=== PATIENT | male | born 1990 | race Caucasian/White ===

== ENCOUNTER 2024-12-04 00:32 | Inpatient (IN) | payer OTHER, SELFPAY ==
[2024-12-04] VITALS (11 sets, daily range): BP systolic 107–136; BP diastolic 58–87; PULSE 105–140; RESP 11–20; TEMP 36.4–37.4; O2SAT 96–99; BMI 41.8
--- NOTE | ~2024-12-04 | US_ITS ---
EXAMINATION: US ABDOMEN LIMITED HISTORY: RUQ; LFT abnormalities, Jaundice TECHNIQUE: Real-time grayscale ultrasound imaging of the right upper quadrant was performed and images were reviewed. COMPARISON: There are no prior studies available for comparison. FINDINGS: Liver: The right lobe of the liver measures 23.8 cm in size. The left lobe of the liver measures 13.3 cm in size. The liver demonstrates increased echotexture, consistent with steatosis. No focal mass or intrahepatic biliary ductal dilatation is identified. A normal waveform in the portal vein cannot be obtained. Gallbladder and biliary tree: The gallbladder is unremarkable, without evidence of calculi, wall thickening, or pericholecystic fluid. There is no sonographic Parsons sign. The common bile duct is normal in caliber measuring 3 mm. Right Kidney: The right kidney measures 12.2 cm in length. The right kidney is unremarkable, without evidence of masses, hydronephrosis, or calculi. Pancreas: The pancreas is obscured by bowel gas. Abdominal aorta and inferior vena cava: The visualized portions of the abdominal aorta and inferior vena cava are normal in caliber. There is no free fluid in the right upper quadrant. US/US abdomen limited IMPRESSION: Hepatomegaly and hepatic steatosis. A normal waveform cannot be obtained in the portal vein which may be occluded. This could be further evaluated with contrast-enhanced CT. Electronically signed by: Glen Tompkins MD 12/04/2024 08:14 AM EDT
--- NOTE | ~2024-12-04 | CT_ITS ---
CLINICAL HISTORY: Altered Mental Status CT head without contrast Comparison: None provided Findings: No intra-axial mass, midline shift, hydrocephalus, or acute hemorrhage. No significant atrophy-like change or white matter disease. There is no sinus or mastoid fluid. The orbits are within normal limits. There is no acute fracture. IMPRESSION: 1. No acute intracranial findings. This document has been electronically signed by: Cora Marmolejo MD on 12/04/2024 06:35:34
--- NOTE | 2024-12-04 01:12 | ED.GENADULT ---
HPI - General Adult General Chief complaint: General Medical Stated complaint: ETOH Time Seen by Provider: 12/04/24 01:12 Source: patient, family and EMS Mode of arrival: EMS Limitations: no limitations History of Present Illness ED Provider: Ismael SMITH HPI narrative: The patient is a 34-year-old male presenting to the ED via EMS for evaluation of hallucinations. Per EMS and patient's significant other who presented to the waiting room, the patient was seen at [facility] starting last Tuesday, 7 days ago, for evaluation of rapid heart rate and feeling unwell. Patient has a history of alcoholism and previous episodes of AFib with a RVR. The patient was admitted for AFib with a RVR, per significant other the patient's last alcoholic drink was last Tuesday, 7 days ago. While at [facility] the patient reportedly began to experience hallucinations and delusions, however was allowed to sign out against medical advice on morning. The patient got a ride home from his mother, at which time the patient's significant other discussed the patient's symptoms and AMA with his PCP, who recommended bring him back to [facility]. Patient was brought back to [facility] and readmitted. The patient's significant other states patient was experiencing paranoid delusions and hallucinations throughout his admission, however this morning she received a phone call from the nursing staff stating he was allowed to once again sign out AMA, it is unclear if patient was ever evaluated by the psychiatry team at [facility]. The patient is a poor historian, and presents with tangential speech with delusions of persecution and visual hallucinations. The patient reports seeing glass above his exam room ceiling and reporting it was placed there by a cult who is trying to kill him, then speaks of black marble beads running across the huff which are the same he saw at [facility] last week. Patient then speaks about the medications he was given at [facility] were being given to control his mind, and while in the ED today he senses there must be an odorless gas being pumped past him to make him more agreeable with medical care/workup. Patient has also been seen speaking to the TV in his exam room, stating he knows there is a camera watching through the TV. The patient also makes statements accusing this provider and his RN of being a part of the conspiracy against him. The patient's ability to provide a reliable HPI is questionable. Despite the patient's visual hallucinations and delusions he remained non-violent thoughout this provider's interview, even when delusions were temporarily challenged. Related Data Allergies Allergy/AdvReac Type Severity Reaction Status Date / Time No Known Allergies Allergy Verified 12/04/24 00:49 Review of Systems Review of Systems: Yes all other systems are reviewed and are negative PMFSH Social History Social History Advance Directives: No Advance Directives Information Provided: No Physical Exam ED Vital Signs: Vital Signs - 24 hr 12/04/24 00:46 12/04/24 05:10 Temperature 99.4 F Pulse Rate 110 H 124 H Respiratory Rate 20 18 Blood Pressure 136/77 132/85 Pulse Oximetry 96 96 Oxygen Delivery Method Room Air Room Air BMI result Body Mass Index 41.8 CONSTITUTIONAL: The patient appears non-toxic, well nourished and in no acute distress. Vital signs as documented. HEAD: Atraumatic, normocephalic. EYES: EOMs grossly intact, pupils equal, conjunctiva clear, no exudate. ENT: Nares patent, no discharge. Airway patent, no audible stridor, visible mucosa is pink and moist without noted lesions. NECK: Trachea is midline, no obvious masses or gross abnormalities. CHEST: Symmetric movement, normal appearance. LUNGS: LS present and CTAB, no w/r/r. Non-labored work of breathing. CARDIAC: Regular Rhythm, S1/S2 appreciated, no murmurs, rubs or gallops. ABDOMEN: Abdomen soft and non-tender x4 quadrants, no palpable masses or organomegaly. : Deferred. EXTREMITIES: Normal tone, moves all extremities spontaneously without reported pain. No obvious acute injury or deformity noted. NEURO: Alert and oriented x3, CN II-XII appear grossly intact. Cerebellar Functioning grossly intact. No obvious sensory or motor deficits. Speech clear and appropriate. PSYCH: paranoid affect, speech is pressured with tangential and disorganized thought. Patient appears to be responding to visual internal stimuli, pointing to the huff to describe rolling black beads, and to the room number reporting seeing a piece of glass moving towards and away from him, patient does not appear to be responding to internal auditory hallucinations. No reported suicidality or homicidality. The patient persistently refers to delusions of persecution as described in HPI. SKIN: Warm, dry, jaundiced, normal turgor. No rashes noted. Medical Decision Making Medical Decision Making MDM Narrative: 2:12 AM 12/04/2024 (Valeria SMITH): The patient is a 34-year-old male presenting to the ED via EMS for evaluation of hallucinations. Per EMS and patient's significant other who presented to the waiting room, the patient was seen at [facility] starting last Tuesday, 7 days ago, for evaluation of rapid heart rate and feeling unwell. Patient has a history of alcoholism and previous episodes of AFib with a RVR. The patient was admitted for AFib with a RVR, per significant other the patient's last alcoholic drink was last Tuesday, 7 days ago. While at [facility] the patient reportedly began to experience hallucinations and delusions, however was allowed to sign out against medical advice on morning. The patient got a ride home from his mother, at which time the patient's significant other discussed the patient's symptoms and AMA with his PCP, who recommended bring him back to [facility]. Patient was brought back to [facility] and readmitted. The patient's significant other states patient was experiencing paranoid delusions and hallucinations throughout his admission, however this morning she received a phone call from the nursing staff stating he was allowed to once again sign out AMA, it is unclear if patient was ever evaluated by the psychiatry team at [facility]. The patient is a poor historian, and presents with tangential speech with delusions of persecution and visual hallucinations. The patient reports seeing glass above his exam room ceiling and reporting it was placed there by a cult who is trying to kill him, then speaks of black marble beads running across the huff which are the same he saw at [facility] last week. Patient then speaks about the medications he was given at [facility] were being given to control his mind, and while in the ED today he senses there must be an odorless gas being pumped past him to make him more agreeable with medical care/workup. Patient has also been seen speaking to the TV in his exam room, stating he knows there is a camera watching through the TV. The patient also makes statements accusing this provider and his RN of being a part of the conspiracy against him. The patient's ability to provide a reliable HPI is questionable. Despite the patient's visual hallucinations and delusions he remained non-violent thoughout this provider's interview, even when delusions were temporarily challenged. The patient's case was discussed with attending physician Dr. Cooper and the patient was placed on a section 12 as EMS advised police were filing a section 12 however did not have 1 with them upon arrival in the ED. On exam the patient is noted to be jaundiced, with rapid and irregular heart rate, no other somatic acute findings. The patient's heart rate ranges from 105-120. The patient was evaluated with EKG which confirms AFib with a RVR, as well as basic laboratory evaluation and toxicology screening. 4:13 AM 12/04/2024 (Valeria SMITH): The patient remains non violent, but persistently refers to his visual hallucinations and delusions. Laboratory evaluation has resulted and shows no leukocytosis or significant anemia, patient has no electrolyte abnormalities or [place]. The patient's LFTs are significantly abnormal with T bili 12.1, AST 271, and ALT 178. Alkaline phosphatase is elevated at 155. The patient's ammonia is only 50. Urinalysis is unremarkable, toxicology screen is negative except for marijuana, ethanol is negative. Despite the patient's normal ammonia level, in the setting of severe liver abnormalities and jaundice, the patient may still be suffering from acute hepatic encephalopathy. The patient will require admission for change in mental status and AFib with a RVR, and will eventually require psychiatry consultation. It is unclear if the patient has had any neuroimaging since presenting to [facility], we will attempt to obtain a CT of the head. We will also contact [facility] for records. 6:13 AM 12/04/2024 (Valeria SMITH): Patient's case was discussed with hospitalist, patient will be admitted for AFib with a RVR, and hepatic encephalopathy. We will provide patient with a his daily metoprolol dosing, and add on direct bili and right upper quadrant ultrasound to evaluate for obstructive pathology as source of hepatic dysfunction versus more likely alcoholic cirrhosis. Of note the patient's best point of contact for additional information is his isra Choi, who can be reached at [phone]. Lab Data 12/04/24 02:23 12/04/24 02:23 Labs: Lab Results 12/04/24 12/04/24 Range/Units 02:23 03:36 WBC 10.5 (4.8-10.8) X10*3/uL RBC 3.44 L (4.60-5.80) X10*6/uL Hgb 13.2 L (14.0-18.0) g/dl Hct 39.2 L (42.0-52.0) % MCV 114.0 H (80.0-98.0) fL MCH 38.4 H (27.0-33.0) pg MCHC 33.7 (31.0-36.0) g/dl RDW 16.1 H (11.0-16.0) % Plt Count 298 (160-400) X10*3/uL MPV 10.7 (9.4-12.4) fL Immature Gran % (Auto) 0.4 (0.0-0.4) % Neut % (Auto) 79.6 H (45-73) % Lymph % (Auto) 10.0 L (20-40) % [place] % (Auto) 9.0 (2-11) % Eos % (Auto) 0.2 (0-4) % Baso % (Auto) 0.8 (0-2) % Lymph # (Auto) 1.1 L (1.2-4.9) X10*3/uL [place] # (Auto) 0.9 (0.1-1.2) X10*3/uL Eos # (Auto) 0.0 (0.0-0.4) X10*3/uL Baso # (Auto) 0.1 (0.0-0.2) X10*3/uL Abs Immat Gran (auto) 0.04 H (0.00-0.03) X10*3/uL Absolute Neuts (auto) 8.4 H (2.0-8.3) x10*3/uL Absolute Nucleated RBC 0.000 (0.0-0.012) X10*3/uL Nucleated RBC % (auto) 0.0 (0.0-0.2) /100WBC Sodium 140 (135-145) mmol/L Potassium 3.8 (3.3-5.1) mmol/L Chloride 104 (96-108) mmol/L Carbon Dioxide 22 (22-29) mmol/L Anion Gap 18 (12-20) BUN 8 L (9-16) mg/dL Creatinine 1.10 (0.5-1.4) mg/dL Estim Creat Clear Calc 120.5 Estimated GFR > 60 Random Glucose 126 H (60-115) mg/dL Calcium 9.3 (8.4-10.2) mg/dL Total Bilirubin 12.1 H (0.0-1.0) mg/dL AST 271 H (5-37) U/L ALT 178 H (0-40) U/L Alkaline Phosphatase 155 H (39-117) U/L Ammonia 50 (13-55) umol/L Total Protein 7.3 (6.5-8.0) g/dL Albumin 4.1 (3.5-5.0) g/dL Urine Color Dark Yellow Urine Appearance Clear Urine pH 6.5 (5.0-9.0) Ur Specific [place] <= 1.005 (1.005-1.025) Urine Protein Negative (Neg-Trace) mg/dL Urine Glucose (UA) Negative (Negative) mg/dL Urine Ketones Negative (Negative) mg/dL Urine Blood Negative (Negative) Urine Nitrite Negative (Negative) Ur Leukocyte Esterase Negative (Negative) Salicylates < 5.0 L (15-30) mg/dL Urine Opiates Screen Not Detected (Not Detect) Ur Buprenorphine Scrn Not Detected (Not Detect) ng/mL Ur Oxycodone Screen Not Detected (Not Detect) ng/mL Urine Methadone Screen Not Detected (Not Detect) ng/mL Urine Fentanyl Screen Not Detected (Not Detect) Acetaminophen < 3 (<30) mcg/mL Ur Barbiturates Screen Not Detected (Not Detect) Ur Phencyclidine Scrn Not Detected (Not Detect) Ur Amphetamines Screen Not Detected (Not Detect) U Benzodiazepines Scrn Not Detected (Not Detect) Urine Cocaine Screen Not Detected (Not Detect) U Marijuana (THC) Screen POSITIVE H (Not Detect) Ethyl Alcohol < 10 mg/dL Discharge Plan Discharge Clinical Impression: Delirium due to hepatic encephalopathy, Atrial fibrillation with RVR Patient Disposition: Admitted As Inpatient Print Language: Choose Not To Answer
--- NOTE | 2024-12-04 01:48 | ECG_ITS ---
Test Reason : afib Blood Pressure : */* mmHG Vent. Rate : 124 BPM Atrial Rate : * BPM P-R Int : * ms QRS Dur : 90 ms QT Int : 314 ms P-R-T Axes : * 17 259 degrees QTcB Int : 451 ms Atrial fibrillation with rapid ventricular response ST & T wave abnormality, consider inferior ischemia ST & T wave abnormality, consider anterolateral ischemia Abnormal ECG No previous ECGs available Referred By: Ismael De Oliveira Electronically Signed By: Bhaskar Cabrera
[2024-12-04 02:33] LABS: Hematocrit 39.2 % (42.0-52.0); Hemoglobin 13.2 g/dl (14.0-18.0); Imm Gran Abs Auto 0.04 X10*3/uL (0.00-0.03); Imm Gran Pct Auto 0.4 % (0.0-0.4); Lymphocytes Absolute Auto 1.1 X10*3/uL (1.2-4.9); MANUAL DIFF FLAG NO; Mean Corpuscular HGB Conc 33.7 g/dl (31.0-36.0); Mean Corpuscular Hemoglobin 38.4 pg (27.0-33.0); NRBC Abs Auto 0.000 X10*3/uL (0.0-0.012); NRBC Pct Auto 0.0 /100WBC (0.0-0.2); Platelet Count 298 X10*3/uL (160-400); Red Blood Count 3.44 X10*6/uL (4.60-5.80); White Blood Count 10.5 X10*3/uL (4.8-10.8)
[2024-12-04 02:37] LABS: Mean Corpuscular Volume 114.0 fL (80.0-98.0)
[2024-12-04 02:45] LABS: Ammonia 50 umol/L (13-55)
[2024-12-04 02:53] LABS: Alanine Aminotransferase 178 U/L (0-40); Albumin Level 4.1 g/dL (3.5-5.0); Anion Gap 18 (12-20); Aspartate Amino Transferase 271 U/L (5-37); Blood Urea Nitrogen 8 mg/dL (9-16); Calcium 9.3 mg/dL (8.4-10.2); Carbon Dioxide 22 mmol/L (22-29); Chloride 104 mmol/L (96-108); Creatinine Clr Calc Pharmacy 120.5; Estimated Glomerular Filt Rate > 60; Potassium 3.8 mmol/L (3.3-5.1); Sodium 140 mmol/L (135-145); Total Protein 7.3 g/dL (6.5-8.0)
--- NOTE | 2024-12-04 02:53 | PC.NURSE ---
Pt arrived via EMS, after family called for concerns of etoh/altered. Recent admission at [facility], left AMA despite hallucinations and delusions per fiance. Pt reluctant to care but agreeable, believes that t/w was a nurse who cared for him at [facility]. Also believes he is being lied to and this is in fact [facility]. Pt reporting there is hanging glass from room number sign. Appears agitated. Pt has scattered thoughts, denies SI/HI. Pt reporting that he doesn't want t stay and is not aggressive, I won't hit anyone unless I need to defend myself . Pt allowed loom changer/ekg and blood work. Placed on tele. Pt believes staff is all in on tricking him . Afib 110's-120's. Jaundice, reports last drink was on Tuesday and when asked any further questions by t/w he states it's in the record, and you already know . LUIS Guevara aware, awaiting labs. Call arora with in reach.
[2024-12-04 03:05] LABS: Acetaminophen LAB < 3 mcg/mL (<30); Alkaline Phosphatase 155 U/L (39-117); Salicylate < 5.0 mg/dL (15-30)
[2024-12-04 03:44] LABS: Appearance Urine Clear; Glucose Urine UA Negative (Negative); PH 6.5 (5.0-9.0); Specific Gravity - Urine <= 1.005 (1.005-1.025)
[2024-12-04 03:59] LABS: Cannabinoid Screen Urine POSITIVE (Not Detect)
[2024-12-04] MEDS: Metoprolol Succinate ER 50 MG TAB.ER.24H PO (06:18)
--- NOTE | 2024-12-04 06:47 | PC.NURSE ---
#20 IV placed in R-AC, pt questioned t/w multiple times that it as only saline in IV. Leads put back on and pt back to bed. pt was up talking to computer screen.
[2024-12-04 07:52] LABS: INTERNATIONAL NORM RATIO 1.4 (0.9-1.1); Prothrombin Time 16.1 SEC (10.9-12.4)
[2024-12-04 08:00] LABS: Gamma Glutamyl Transpeptidase 1601 U/L (11-51)
[2024-12-04 08:35] LABS: Folate 7.4 ng/mL (> or = 4.0); Vitamin B12 1202 pg/mL (200-900)
--- NOTE | 2024-12-04 09:34 | PM.IMHP ---
History of Present Illness Date of Service: 12/04/24 Chief Complaint: Confusion 34-year-old patient presenting to the ER with confusion and hallucinations. Apparently the patient was seen at [facility] last week for evaluation of rapid heart rate. Patient does have a history of paroxysmal atrial fibrillation with rapid ventricular response and alcohol abuse. Apparently while being treated at [facility] patient signed out against medical advice even though he was experiencing hallucinations and delusions. After discussion with his mother and primary care provider he ended up going back to [facility] and he again left against medical advice. He has been having hallucinations and confusion likely secondary to alcohol withdrawal. During examination in the ED patient is alert and oriented x3 and conversational. In the ED, AST 271, ALT 178, GGT 1601, bilirubin 12.1, abdominal ultrasound with hepatomegaly and hepatic steatosis, head CT negative for any acute abnormalities. Patient was given metoprolol, IV thiamine in the ER. He will be admitted for further management of atrial fibrillation with rapid ventricular response and acute on chronic hepatic encephalopathy. Review of Systems Review of Systems: Denies any recent fever chills or decrease in appetite respiratory denies any shortness of breath or cough cardiovascular denied chest pain gastrointestinal denies any dysphagia abdominal pain nausea vomiting or diarrhea genitourinary denies any dysuria frequency or hematuria musculoskeletal denies any joint pain or swelling neuropsych denies any weakness or seizures all other systems reviewed are negative [facility] Medical History (Updated 12/06/24 @ 11:20 by Edda Brooks MD) Atrial fibrillation Surgical History No pertinent past surgical history Social History Household Members: Significant Other Housing: Apartment Do you presently have visiting nurse or other home services: No Patient Tobacco Use Status: Current everyday Tobacco user Tobacco use type: Cigarette Cigarettes Per Day: 4 Years Smoked: 20 e-Cigarette/Vaping Use: Never Used Second Hand Smoke Exposure: No service: No Meds Allergies Allergy/AdvReac Type Severity Reaction Status Date / Time No Known Allergies Allergy Verified 12/04/24 00:49 Home Medications ?Medication ?Instructions ?Recorded ?Confirmed ?Last Taken ?Type metoprolol succinate 25 mg 50 mg PO DAILY 12/04/24 12/04/24 Unknown History tablet,extended release 24 hr Physical Exam Vital Signs and Narrative: Vital Signs: Last Vital Signs Temp 99.4 F 12/04/24 05:10 Pulse 105 H 12/04/24 07:23 Resp 11 L 12/04/24 07:23 BP 121/83 12/04/24 07:23 Pulse Ox 98 12/04/24 07:23 O2 Del Method Room Air 12/04/24 07:23 BMI result Body Mass Index 41.8 Appearing in no acute distress head is normocephalic atraumatic eyes pupils are PERRLA sclera is anicteric mouth throat mucous membranes are intact and moist neck is supple no lymphadenopathy, no JVD noted lung sounds are clear to auscultation heart regular rate rhythm, clear S1, S2 positive bowel sounds, abdomen is soft, nontender neuro patient is alert x3, no focal deficits Results Labs 12/05/24 06:26 12/07/24 06:57 Labs: Laboratory Results - last 24 hr 12/04/24 12/04/24 12/04/24 02:23 03:36 07:38 MCV 114.0 H MCH 38.4 H MCHC 33.7 RDW 16.1 H Plt Count 298 MPV 10.7 Immature Gran % (Auto) 0.4 Neut % (Auto) 79.6 H Lymph % (Auto) 10.0 L [place] % (Auto) 9.0 Eos % (Auto) 0.2 Baso % (Auto) 0.8 Lymph # (Auto) 1.1 L [place] # (Auto) 0.9 Eos # (Auto) 0.0 Baso # (Auto) 0.1 Abs Immat Gran (auto) 0.04 H Absolute Neuts (auto) 8.4 H Absolute Nucleated RBC 0.000 Nucleated RBC % (auto) 0.0 PT 16.1 H INR 1.4 H Anion Gap 18 Estim Creat Clear Calc 120.5 Estimated GFR > 60 Random Glucose 126 H Calcium 9.3 Total Bilirubin 12.1 H Direct Bilirubin 8.4 H GGT 1601 H AST 271 H ALT 178 H Alkaline Phosphatase 155 H Ammonia 50 Total Protein 7.3 Albumin 4.1 Vitamin B12 1202 H Folate 7.4 Urine Color Dark Yellow Urine Appearance Clear Urine pH 6.5 Ur Specific [place] <= 1.005 Urine Protein Negative Urine Glucose (UA) Negative Urine Ketones Negative Urine Blood Negative Urine Nitrite Negative Ur Leukocyte Esterase Negative Salicylates < 5.0 L Urine Opiates Screen Not Detected Ur Buprenorphine Scrn Not Detected Ur Oxycodone Screen Not Detected Urine Methadone Screen Not Detected Urine Fentanyl Screen Not Detected Acetaminophen < 3 Ur Barbiturates Screen Not Detected Ur Phencyclidine Scrn Not Detected Ur Amphetamines Screen Not Detected U Benzodiazepines Scrn Not Detected Urine Cocaine Screen Not Detected U Marijuana (THC) Screen POSITIVE H Ethyl Alcohol < 10 Imaging Radiologist's Impressions: Impressions Abdomen Ultrasound 12/04/24 07:47 IMPRESSION: Hepatomegaly and hepatic steatosis. A normal waveform cannot be obtained in the portal vein which may be occluded. This could be further evaluated with contrast-enhanced CT. Electronically signed by: Glen Tompkins MD 12/04/2024 08:14 AM EDT RP Assessment and Plan (1) Atrial fibrillation with RVR: Status: Acute (2) Delirium due to hepatic encephalopathy: Status: Acute Plan 34-year-old man admitted with hepatic encephalopathy with history of alcohol abuse with hallucinations and increased confusion along with atrial fibrillation with rapid ventricular. Patient has a history of atrial fibrillation but has been off of his medications for months. Atrial fibrillation with rapid ventricular response History of AFib, reported that at 1 time he was on Eliquis and amiodarone but lost his insurance so has not been on that for over a year Stopped metoprolol about 3 months ago Received 1 dose of metoprolol 50 mg in the ER We will give Cardizem 10 mg IV now Cardiology consultation Monitor on telemetry Dante 2 Vasc score 0, Has bled score 2 Alcohol abuse and withdrawal Last drink was approximately 1 week ago During this week patient has been having hallucinations and has been very confused Patient does believe that this is secondary to withdrawing from alcohol More alert and oriented at this time able to participate in interview Seems to be passed physical withdrawal symptoms at this time so we will hold off on starting phenobarbital We will give Valium p.r.n. for anxiety Addiction medicine consultation Transaminitis AST 271, ALT 178, GGT 1601 Ammonia 50 Secondary to alcohol abuse Abdominal ultrasound showing hepatomegaly and hepatic steatosis DVT prophylaxis with Lovenox Full code Patient will require at least 2 days of admission due to hallucinations from alcohol withdrawal requiring psychiatric consultation and atrial fibrillation with rapid ventricular response requiring new onset of medications as well as specialty consultation Quality Stroke Does the patient have a stroke diagnosis?: No VTE Prior VTE?: No VTE Risk Level:: Medical - moderate - high VTE Device Contraindication: N/A - Device Ordered VTE Drug Contraindication: N/A - Med Ordered
[2024-12-04] MEDS: Thiamine HCL 200 MG in 0.9 % Sodium Chloride 100 ML 204 MG IV (09:45)
--- NOTE | 2024-12-04 10:30 | PHA.MEDREC ---
Addendum entered by Zuleima Patricio RPh 12/04/24 10:34: Reviewed by [facility] Original Note: Pharmacy Consult ? Medication Reconciliation Pharmacy has completed the medication reconciliation. Patient states he takes Eliquis , however he hasn't filled in over 3 years. Patient also takes Metoprolol Succ ER 50 mg ( 2x 25 mg) daily, however hasn't been able to take for 3 weeks due to patient not having insurance.
--- NOTE | 2024-12-04 11:16 | PC.NURSE ---
Pt becoming increasingly anxious. Visual hallucinations. Started shouting at another patient. Seemingly more confused. Provider notified
--- NOTE | 2024-12-04 11:36 | MHC.CARE ---
Pt's sister called to inquire if Pt was referred to the CARE team and what his disposition was. She also inquired about how Pt was doing medically. She was informed that only limited information could be given without a RAPHAEL however she was informed Pt was not referred to the CARE team at this time. She reported she is extremely concerned about Pt's well being and he left [facility] twice in a week AMA. She sent a lengthy collateral note which will be scanned into Pt's chart and will be located in outside records. She had called this morning and expressed her concern to the ED staff as Pt was not brought into the ED on a Section 12 from [facility]. Pt was placed on a section 12a by the ED provider. Pt is being medically admitted at this time and may be referred to the CARE team upon clearance. There is a psych consult in for Pt.
[2024-12-04] MEDS: diazePAM 10 MG/2 ML CARTRIDGE 5 MG IVPUSH (12:14)
--- NOTE | 2024-12-04 12:25 | PC.NURSE ---
Pt becoming very agitated, walking around room. Resistant to directions. Provider notified.
--- NOTE | 2024-12-04 12:28 | MHC.CM.PN ---
CM met with Patient at bedside, in the ED. Patient lives in an apartment with his Fimilan/Steph and he may need assist with transport @ [place]. Patient's correct address is [address] [place] [address] (Left) in [place] and PCP is Dr. Soraya Pratt.
--- NOTE | 2024-12-04 20:21 | HO.ADDICT_ITS ---
History of Present Illness Date of Service: 12/04/2024 Chief Complaint: Rapid A-fib, psychosis, liver failure Reason for Consult: AUD Sources of Information: patient interviewed (limited information ) and chart reviewed HPI Narrative: Patient is a 34 year old male who [place] [facility] being admitted to [facility] X2 over the last several days for AFIB with RVR-on both admissions he reportedly left via self initiated discharge, and per family, was experiencing auditory and visual hallucinations while there. Per chart review, patient presented to ED with paranoid delusions, auditory and visual hallucinations, but has remained in behavioral control. Labs significant for bili 12, AST 271 ALT 178, GGT [address] negative UDS and etoh level Last drink reported to be over a week ago. No evidence of withdrawal sx. Patient has been initiated on IV thiamine Seen in ED, patient is awake, alert, pleasant He is very focused on monitor which shows vitals-BP wnl, tachycardic Unable to provide any meaningful information, but overall pleasant and anxious Medical Evaluation Reviewed: Yes Review of Systems Review of Systems Yes Other (deferred-patient reports feeling nervous) Diagnostics Vital Signs (24Hr): Vital Signs - 24 hr 12/04/24 00:46 12/04/24 05:10 12/04/24 06:18 Temperature 99.4 F Pulse Rate 110 H 124 H 106 H Respiratory Rate 20 18 Blood Pressure 136/77 132/85 132/85 Pulse Oximetry 96 96 Oxygen Delivery Method Room Air Room Air 12/04/24 07:23 12/04/24 10:52 12/04/24 12:13 Temperature Pulse Rate 105 H 121 H 140 H Respiratory Rate 11 L 18 Blood Pressure 121/83 122/85 122/85 Pulse Oximetry 98 98 Oxygen Delivery Method Room Air Room Air 12/04/24 12:24 12/04/24 14:06 12/04/24 16:41 Temperature 98 F 97.5 F Pulse Rate 122 H 113 H 115 H Respiratory Rate 17 19 Blood Pressure 108/58 L 113/74 Pulse Oximetry 98 99 Oxygen Delivery Method Room Air Room Air 12/04/24 19:56 Temperature 97.8 F Pulse Rate 106 H Respiratory Rate 17 Blood Pressure 107/85 Pulse Oximetry 96 Oxygen Delivery Method Room Air BMI result Body Mass Index 41.8 Labs 12/04/24 02:23 12/04/24 02:23 Labs: Laboratory Results - last 48 hr 12/04/24 12/04/24 12/04/24 02:23 03:36 07:38 WBC 10.5 RBC 3.44 L Hgb 13.2 L Hct 39.2 L MCV 114.0 H MCH 38.4 H MCHC 33.7 RDW 16.1 H Plt Count 298 MPV 10.7 Immature Gran % (Auto) 0.4 Neut % (Auto) 79.6 H Lymph % (Auto) 10.0 L Boundary % (Auto) 9.0 Eos % (Auto) 0.2 Baso % (Auto) 0.8 Lymph # (Auto) 1.1 L Boundary # (Auto) 0.9 Eos # (Auto) 0.0 Baso # (Auto) 0.1 Abs Immat Gran (auto) 0.04 H Absolute Neuts (auto) 8.4 H Absolute Nucleated RBC 0.000 Nucleated RBC % (auto) 0.0 Smear Path Review SEE NOTE PT 16.1 H INR 1.4 H Sodium 140 Potassium 3.8 Chloride 104 Carbon Dioxide 22 Anion Gap 18 BUN 8 L Creatinine 1.10 Estim Creat Clear Calc 120.5 Estimated GFR > 60 Random Glucose 126 H Calcium 9.3 Total Bilirubin 12.1 H Direct Bilirubin 8.4 H GGT 1601 H AST 271 H ALT 178 H Alkaline Phosphatase 155 H Ammonia 50 Total Protein 7.3 Albumin 4.1 Vitamin B12 1202 H Folate 7.4 Urine Color Dark Yellow Urine Appearance Clear Urine pH 6.5 Ur Specific [place] <= 1.005 Urine Protein Negative Urine Glucose (UA) Negative Urine Ketones Negative Urine Blood Negative Urine Nitrite Negative Ur Leukocyte Esterase Negative Salicylates < 5.0 L Urine Opiates Screen Not Detected Ur Buprenorphine Scrn Not Detected Ur Oxycodone Screen Not Detected Urine Methadone Screen Not Detected Urine Fentanyl Screen Not Detected Acetaminophen < 3 Ur Barbiturates Screen Not Detected Ur Phencyclidine Scrn Not Detected Ur Amphetamines Screen Not Detected U Benzodiazepines Scrn Not Detected Urine Cocaine Screen Not Detected U Marijuana (THC) Screen POSITIVE H Ethyl Alcohol < 10 Imaging Radiology Impressions: ITS Impressions Abdomen Ultrasound 12/04/24 07:47 IMPRESSION: Hepatomegaly and hepatic steatosis. A normal waveform cannot be obtained in the portal vein which may be occluded. This could be further evaluated with contrast-enhanced CT. Electronically signed by: Glen Tompkins MD 12/04/2024 08:14 AM EDT RP Mental Status Exam Mental Status Exam Level of Consciousness: Awake and Alert Patient Behavior: Anxious Affect Description: Appropriate and Anxious Speech Pattern: Clear Thought Content: positive for Tangential and positive for Disorganized Judgement: Poor Medications Medications Current Medications Acetaminophen (Acetaminophen 325 Mg Tablet) 650 mg PO Q6H PRN PRN Reason: Pain, Mild 1-3,fever,headache Calcium Carbonate (Calcium Carbonate 750 Mg Tab.Chew) 750 mg PO Q4H PRN PRN Reason: Heartburn Enoxaparin Sodium (Enoxaparin Sodium 40 Mg/0.4 Ml Syringe) 40 mg SUBCUT Q12H [facility] Last Admin: 12/04/24 10:52 Dose: 40 mg Folic Acid (Folic Acid 1 Mg Tablet) 1 mg PO DAILY [facility] Thiamine HCl 100 mg/ Sodium (Chloride) 101 mls @ 202 mls/hr IV DAILY [facility] Lorazepam (Lorazepam 0.5 Mg Tablet) 0.5 mg PO Q8H PRN PRN Reason: Anxiety Magnesium Hydroxide (Milk Of Magnesia 30 Ml Oral.Susp) 30 ml PO DAILY PRN PRN Reason: Constipation Melatonin (Melatonin 3 Mg Tablet) 6 mg PO BEDTIME PRN PRN Reason: Insomnia Multivitamins/Vitamin C (Multivitamin Tablet) 1 tab PO DAILY [facility] Ondansetron HCl (Ondansetron Hcl 4 Mg/2 Ml Vial) 4 mg IVPUSH Q8H PRN PRN Reason: Nausea and Vomiting Sodium Chloride (0.9 % Sodium Chloride Flush 3 Ml Syringe) 3 ml IVFLUSH QSHIFT [facility] Last Admin: 12/04/24 16:47 Dose: Not Given Allergies Allergies Allergy/AdvReac Type Severity Reaction Status Date / Time No Known Allergies Allergy Verified 12/04/24 00:49 Assessment & Plan Assessment & Plan (1) Delirium due to hepatic encephalopathy: Status: Acute Code(s): K76.82 - Hepatic encephalopathy; F05 - Delirium due to known physiological condition Assessment and Plan: * ?alcohol hallucinosis * continue high dose IV thiamine 200mg QD for 3 days then decrease to 100mg QD * zyprexa 5mg QD to address AH/VH (pending psychiatry consult) * PRN lorazepam for ongoing anxiety. * will need to obtain collateral related to alcohol use and any treatment for alcohol use at [facility] Total time managing care of this patient today __30__ minutes. [facility] Past Medical History Medical History (Updated 12/04/24 @ 11:25 by Pia Taylor NP) Atrial fibrillation Surgical History Surgical History (Updated 12/04/24 @ 11:25 by Pia Taylor NP) No pertinent past surgical history Social History Social History Advance Directives: No Advance Directives Information Provided: No service: No
[2024-12-05] VITALS (8 sets, daily range): BP systolic 101–130; BP diastolic 63–94; PULSE 85–116; RESP 17–19; TEMP 36–36.8; O2SAT 90–96; BMI 41.4
--- NOTE | 2024-12-05 00:02 | HO.NURTONUR ---
Pt arrived via EMS, after family called for concerns of etoh/altered behavior. Recent admission at [facility], left AMA despite hallucinations and delusions per fiance. Pt reluctant to care but agreeable. Also believes he is being lied to and this is in fact [facility]. Pt reporting there is hanging glass from room number sign. Appears agitated. Pt has scattered thoughts, denies SI/HI. Pt reporting that he doesn't want to stay and is not aggressive, I won't hit anyone unless I need to defend myself . Pt allowed change person/ekg and blood work. Placed on tele. Pt noted to be in afib 110's-120', jaundice, reports last drink was on Tuesday and when asked any further questions he states it's in the record, and you already know . Throughout pts stay pt noted to have episodes of anxiety, AH/VH, speaking to the monitor, and pacing in room. Pt on Sect 12. Pt has been able to be redirected and compliant with medications. Pt has 20G IV in LFA. Pt medicated per mar. Pt being admitted for management of afib and hepatic encephalopathy. Labs AST- 271 ALT- 178 GGT- 1601 bilirubin- 12.1
[2024-12-05] MEDS: diazePAM 10 MG/2 ML CARTRIDGE 5 MG IVPUSH (05:18)
--- NOTE | 2024-12-05 07:00 | CA_ITS ---
Transthoracic Echocardiogram Patient (Last, First, Middle): Patricio Cruz, Gender: Male Date of : 1990 Age: 34 Procedure Date: 12/05/2024 Procedure Type: Transthoracic Echocardiogram [place] [facility] [place]: 172.72 cm Weight: 123.38 kg BSA: 2.33 m2 Heart Rate: bpm BP: 126 / 72 mmHg Microbiology Laboratory Manager: Referring MD: Patito Fairchild MD Symptoms: Rapid AFib Study Quality: Adequate with Contrast ECG Rhythm: Atrial Fibrillation Conclusions: - Normal left ventricular size and systolic function. There is moderately increased left ventricular wall thickness. The visually estimated ejection fraction is between 55-60%. - Mildly increased right ventricular cavity size. There is low normal right ventricular systolic function. Findings Left Ventricle Normal left ventricular size and systolic function. There is moderately increased left ventricular wall thickness. The visually estimated ejection fraction is between 55-60%. There is no evidence of regional wall motion abnormalities. Diastolic function is indeterminate on the basis of available data. Right Ventricle Mildly increased right ventricular cavity size. There is low normal right ventricular systolic function. Atria The left atrium is normal in size. The right atrium is likely dilated. Aortic Valve The aortic valve was not well visualized. There is no aortic valve stenosis. There is no aortic valve regurgitation. Mitral Valve Normal mitral valve structure and function. There is no mitral valve regurgitation. There is no mitral valve stenosis. Pulmonic Valve The pulmonic valve is likely normal. Tricuspid Valve Normal tricuspid valve structure. There is no tricuspid valve regurgitation. Normal right atrial pressure. There is no evidence of pulmonary hypertension. Great Vessels All visible segments of the aorta are normal in size. Venous The inferior vena cava is normal in size and collapses greater than 50% with inspiration. Pericardium/Pleural There is no evidence of pericardial effusion. Prior Study Comparison No prior study available for comparison. Measurements 2D Linear Measurements IVSd: 1.41 0.6-0.9/0.6-1.0 cm LVIDd: 4.01 3.9-5.3/4.2-5.9 cm LVIDd Index: 1.72 2.4-3.2/2.2-3.1 cm/m2 LVIDs: 3.19 2.0-3.6 cm LVPWd: 1.41 0.7-1.1 cm Ao Root: 3.50 2.1-3.5 cm LA Diam: 3.80 2.7-3.8/3.0-4.0 cm LAIDs Index: 1.63 1.5-2.3 cm/m2 LV Mass: 264.30 67-162/88-224 g LV Mass Index: 113.43 43-95/49-115 g/m2 LVOT Diam: 2.30 3.0+(-)1.3 cm 2D Systolic Function EF 4C: 64.00 >55% EF 2C: 52.30 >55% EF BiP: 60.30 >55% Mitral Valve MV Pk E: 0.80 MV Decel Time: 221.00 E'Lateral: 10.60 E'Medial: 7.51 E/E' Med: 10.60 E/E' Lat: 7.50 PHT: 65.00 MVA PHT: 3.38 Decel Burnet: 3.60 Aortic Valve AoV Pk Girma: 1.21 AoV Mn Girma: 0.81 AoV VTI: 0.21 AoV Pk Grad: 6.00 Aov Mn Grad: 3.00 ELIJAH Cont.VTI: 2.33 LVOT LVOT Pk Girma: 0.77 LVOT Mn Girma: 0.52 LVOT VTI: 0.12 LVOT Pk Grad: 2.00 LVOT Mn Grad: 1.00 LVOT Diam: 2.30 LVOT Area: 4.15 Diastolic Function MV Pk E: 0.80 E'Medial: 7.51 E/E' Med: 10.60 E' Laterial: 10.60 E/E' Lat: 7.50 Tricuspid Valve TR Pk Girma: 2.00 TR Pk Grad: 16.00 RA Press: 3.00 RVSP: 19.00 Great Vessels Aorta Ao Root-2D: 3.50 2.0-3.7 cm Pulmonary Valve PV Pk Girma: 0.76 Peak PV Grad: 2.00 Updated in Other Vendor System with Status of Final Bhaskar Cabrera MD electronically signed on 12/06/2024 3:57:02 PM with status of Final
[2024-12-05 07:12] LABS: Hematocrit 34.9 % (42.0-52.0); Hemoglobin 11.6 g/dl (14.0-18.0); Mean Corpuscular HGB Conc 33.2 g/dl (31.0-36.0); Mean Corpuscular Hemoglobin 38.7 pg (27.0-33.0); Mean Corpuscular Volume 116.3 fL (80.0-98.0); NRBC Abs Auto 0.000 X10*3/uL (0.0-0.012); NRBC Pct Auto 0.0 /100WBC (0.0-0.2); Platelet Count 255 X10*3/uL (160-400); Red Blood Count 3.00 X10*6/uL (4.60-5.80); White Blood Count 7.7 X10*3/uL (4.8-10.8)
[2024-12-05 07:30] LABS: Anion Gap 16 (12-20); Blood Urea Nitrogen 13 mg/dL (9-16); Calcium 8.6 mg/dL (8.4-10.2); Carbon Dioxide 22 mmol/L (22-29); Chloride 105 mmol/L (96-108); Creatinine Clr Calc Pharmacy 141.7; Estimated Glomerular Filt Rate > 60; Potassium 3.5 mmol/L (3.3-5.1); Sodium 139 mmol/L (135-145)
--- NOTE | 2024-12-05 10:39 | P.CONCA_ITS ---
History of Present Illness History of Present Illness Date of Service: 12/05/24 Chief complaint: Rapid A-fib, psychosis, liver failure Narrative: 34-year-old gentleman with alcoholism presenting with AFib with RVR. Quite sleepy at the time of interview. Denying any symptoms. Apparently was hallucinating and was given thiamine with improvement in mental status. Currently quite sleepy and snoring. Continues to be in atrial fibrillation although rates are below 100 at this point. Denying any symptoms currently but overall quite sleepy and history limited. [facility] Past Medical History Medical History Atrial fibrillation Surgical History Surgical History No pertinent past surgical history Social History Social History Household Members: Significant Other Housing: Apartment Do you presently have visiting nurse or other home services: No Patient Tobacco Use Status: Current everyday Tobacco user Tobacco use type: Cigarette Cigarettes Per Day: 4 Years Smoked: 20 e-Cigarette/Vaping Use: Never Used Second Hand Smoke Exposure: No service: No Meds Allergies Allergy/AdvReac Type Severity Reaction Status Date / Time No Known Allergies Allergy Verified 12/04/24 00:49 Active Medications: Current Medications Acetaminophen (Acetaminophen 325 Mg Tablet) 650 mg PO Q6H PRN PRN Reason: Pain, Mild 1-3,fever,headache Calcium Carbonate (Calcium Carbonate 750 Mg Tab.Chew) 750 mg PO Q4H PRN PRN Reason: Heartburn Enoxaparin Sodium (Enoxaparin Sodium 40 Mg/0.4 Ml Syringe) 40 mg SUBCUT Q12H [facility] Last Admin: 12/04/24 21:35 Dose: 40 mg Folic Acid (Folic Acid 1 Mg Tablet) 1 mg PO DAILY [facility] Diltiazem HCl 125 mg/ Sodium (Chloride) 125 mls @ 0 mls/hr IVCONT .Q0M [facility]; Protocol Thiamine HCl 200 mg/ Sodium (Chloride) 102 mls @ 202 mls/hr IV DAILY [facility] Lorazepam (Lorazepam 0.5 Mg Tablet) 0.5 mg PO Q8H PRN PRN Reason: Anxiety Last Admin: 12/04/24 21:34 Dose: 0.5 mg Magnesium Hydroxide (Milk Of Magnesia 30 Ml Oral.Susp) 30 ml PO DAILY PRN PRN Reason: Constipation Melatonin (Melatonin 3 Mg Tablet) 6 mg PO BEDTIME PRN PRN Reason: Insomnia Last Admin: 12/04/24 21:35 Dose: 6 mg Multivitamins/Vitamin C (Multivitamin Tablet) 1 tab PO DAILY [facility] Olanzapine (Olanzapine 5 Mg Tablet) 5 mg PO DAILY PRN PRN Reason: Hallucinations Last Admin: 12/04/24 23:48 Dose: 5 mg Sodium Chloride (0.9 % Sodium Chloride Flush 3 Ml Syringe) 3 ml IVFLUSH QSHIFT [facility] Last Admin: 12/05/24 00:14 Dose: Not Given Home Medications ?Medication ?Instructions ?Recorded ?Confirmed ?Last Taken ?Type metoprolol succinate 25 mg 50 mg PO DAILY 12/04/24 Unknown History tablet,extended release 24 hr Physical Exam 2 Vital Signs: Vital Signs: Last Vital Signs Temp 97.0 F 12/05/24 04:45 Pulse 93 12/05/24 08:00 Resp 18 12/05/24 08:00 BP 130/94 H 12/05/24 08:00 Pulse Ox 90 L 12/05/24 08:00 O2 Del Method Room Air 12/05/24 08:00 BMI result Body Mass Index 41.4 GENERAL APPEARANCE: in no acute distress. NECK: no carotid bruit, no jugular venous distention. SKIN: no suspicious lesions, warm and dry. HEART: no murmurs, irregular rate and rhythm. LUNGS: clear to auscultation bilaterally. ABDOMEN: soft, nontender. EXTREMITIES: no edema. PERIPHERAL PULSES: equal. NEUROLOGIC: No gross deficits, AAO X 3 Objective Labs and Meds 12/05/24 06:26 12/05/24 06:26 Lab results: Laboratory Results - last 24 hr 12/05/24 06:26 WBC 7.7 RBC 3.00 L Hgb 11.6 L Hct 34.9 L MCV 116.3 H MCH 38.7 H MCHC 33.2 RDW 15.9 Plt Count 255 MPV 11.1 Absolute Nucleated RBC 0.000 Nucleated RBC % (auto) 0.0 Sodium 139 Potassium 3.5 Chloride 105 Carbon Dioxide 22 Anion Gap 16 BUN 13 Creatinine 0.93 Estim Creat Clear Calc 141.7 Estimated GFR > 60 Random Glucose 79 Calcium 8.6 D Assessment and Plan (1) Atrial fibrillation with RVR: Status: Acute Plan Atrial fibrillation with rapid ventricular response in a 34-year-old gentleman with alcoholism. Alcohol is the trigger for atrial fibrillation in this gentleman. He is going through withdrawal currently and overall is improving. Heart rates are better controlled. Do not recommend anticoagulation. Check echocardiography to assess for any cardiomyopathy. He is also snoring quite heavily when he is sleeping. He is overweight and we will benefit from outpatient sleep Medicine assessment once stable from alcohol point of view. Thank you for allowing me to participate in the care of your patient. Please feel free to contact me if you have any questions. Procedures Date of Service Date of Service: 12/05/24
[2024-12-05] MEDS: 0.9 % Sodium Chloride Flush 3 ML SYRINGE IVFLUSH (11:25)
[2024-12-05] MEDS: Thiamine HCL 200 MG in 0.9 % Sodium Chloride 100 ML 202 MG IV (11:25)
--- NOTE | 2024-12-05 15:08 | MHC.CM.PN ---
Per rounds, pt. still requiring acute care for alcohol withdrawal. HCP obtained from [facility], naming 1. Steph and 2. Hermelinda. CM received a call from Hermelinda, pt.'s sister, asking for information. CM let her know that I needed the HCP, which we now have and to ask pt.'s permission to speak with her, iformed ZONIA that pt. AMS has now cleared. CM will ask pt. permission when he is awake, he is sleeping soundly at this time.
--- NOTE | 2024-12-05 16:28 | MHC.CM.PN ---
CM received a call from pt.'s sister, Hermelinda today, she would like information on pt.'s condition, Pt. was able to give permission for CM to speak with Hermelinda and his finace Steph. HCP obtained from [facility], naming Steph and Hermelinda. PCP is Soraya Joseph at [facility]. Hermelinda informed CM that pt. was accepted at [facility] on his recent admission at [facility]. Addiction services nurse informed.
--- NOTE | 2024-12-05 19:48 | HO.PM.IMPN ---
Subjective Subjective Date of Service: 12/05/24 Interval History: patient no longer has hallucinations. No tremulousness observed during evaluation. Significantly fatigued and tired. No altered mental status, alert and oriented to person place time and situation. The patient does endorse that he has been under a significant mental fog over the past week, and currently feels much like himself. Still endorses a generalized fogginess Review of Systems Review of Systems: Yes all other systems are reviewed and are negative Physical Exam Exam: Exam: General: A&O x3, oriented to time place person and situation, comfortable, no pain Cardiac: S1, S2 auscultated with no S3/4, no MRG. Well perfused. Respiratory: Normal breath sounds auscultated throughout all lung zones, without wheezing, rales. Normal rate. GI/ : No abdominal pain on palpation, no masses or distentions. MSK: Normal ambulation without pain at bony prominences or musculature Neurological: Normal neurological examination on overview, without obvious CN II-XII abnormalities. Vital Signs: Vital Signs: Last Vital Signs Temp 98.3 F 12/05/24 19:26 Pulse 85 12/05/24 19:26 Resp 18 12/05/24 19:26 BP 124/67 12/05/24 19:26 Pulse Ox 94 12/05/24 19:26 O2 Del Method Room Air 12/05/24 19:26 BMI result Body Mass Index 41.4 Objective Data Active Medications Acetaminophen (Acetaminophen 325 Mg Tablet) 650 mg PO Q6H PRN PRN Reason: Pain, Mild 1-3,fever,headache Calcium Carbonate (Calcium Carbonate 750 Mg Tab.Chew) 750 mg PO Q4H PRN PRN Reason: Heartburn Enoxaparin Sodium (Enoxaparin Sodium 40 Mg/0.4 Ml Syringe) 40 mg SUBCUT Q12H [facility] Last Admin: 12/05/24 11:24 Dose: 40 mg Documented By: SHARON Folic Acid (Folic Acid 1 Mg Tablet) 1 mg PO DAILY [facility] Last Admin: 12/05/24 11:36 Dose: 1 mg Documented By: SHARON Diltiazem HCl 125 mg/ Sodium (Chloride) 125 mls @ 0 mls/hr IVCONT .Q0M [facility]; Protocol Thiamine HCl 200 mg/ Sodium (Chloride) 102 mls @ 202 mls/hr IV DAILY [facility] Last Infusion: 12/05/24 12:05 Dose: Infused Documented By: SHARON Lorazepam (Lorazepam 0.5 Mg Tablet) 0.5 mg PO Q8H PRN PRN Reason: Anxiety Last Admin: 12/04/24 21:34 Dose: 0.5 mg Documented By: ERIC Magnesium Hydroxide (Milk Of Magnesia 30 Ml Oral.Susp) 30 ml PO DAILY PRN PRN Reason: Constipation Melatonin (Melatonin 3 Mg Tablet) 6 mg PO BEDTIME PRN PRN Reason: Insomnia Last Admin: 12/04/24 21:35 Dose: 6 mg Documented By: ERIC Multivitamins/Vitamin C (Multivitamin Tablet) 1 tab PO DAILY [facility] Last Admin: 12/05/24 11:36 Dose: 1 tab Documented By: SHARON Olanzapine (Olanzapine 5 Mg Tablet) 5 mg PO DAILY PRN PRN Reason: Hallucinations Last Admin: 12/04/24 23:48 Dose: 5 mg Documented By: ERIC Sodium Chloride (0.9 % Sodium Chloride Flush 3 Ml Syringe) 3 ml IVFLUSH QSHIFT [facility] Last Admin: 12/05/24 11:25 Dose: 3 ml Documented By: SHARON Labs 12/05/24 06:26 12/05/24 06:26 Labs: Laboratory Results - last 24 hr 12/05/24 06:26 MCV 116.3 H MCH 38.7 H MCHC 33.2 RDW 15.9 Plt Count 255 MPV 11.1 Absolute Nucleated RBC 0.000 Nucleated RBC % (auto) 0.0 Anion Gap 16 Estim Creat Clear Calc 141.7 Estimated GFR > 60 Random Glucose 79 Calcium 8.6 D Assessment and Plan (1) Atrial fibrillation with RVR: Status: Acute (2) Wernicke encephalopathy: Status: Acute (3) Alcohol abuse: Status: Acute (4) Alcohol withdrawal: Status: Acute (5) Cardiomyopathy: Status: Acute (6) HFrEF (heart failure with reduced ejection fraction): Status: Acute Plan 34-year-old man, With a background history of alcohol abuse, HFrEF ( subjectively reports 20%), atrial fibrillation noncompliant with medications or anticoagulation, presents with altered mental status, and visual hallucinations in the setting of alcohol withdrawal, admitted with toxic encephalopathy & superimposed Wernicke encephalopathy and atrial fibrillation with RVR. Atrial fibrillation with rapid ventricular response History of AFib, reported that at 1 time he was on Eliquis and amiodarone but lost his insurance so has not been on that for over a year Stopped metoprolol about 3 months ago Received 1 dose of metoprolol 50 mg in the ER Cardiology recommendations appreciated Monitor on telemetry [id number] Score score 2 ( cardiomyopathy, HTN) PLAN - metoprolol 12.5 mg b.i.d. p.o. - echocardiography - discontinue diltiazem - reinitiate apixaban 5 mg b.i.d. p.o. - continue cardiac telemetry Chronic HFrEF - subjectively reports 20% patient reports having been diagnosed with CHF with a reduced ejection fraction. He reports that it was around 20% last time he was evaluated by Cardiology. Patient has continued to drink alcohol, and reports that his atrial fibrillation has recurred since. No evidence of acute CHF exacerbation at this time. Plan as above. Alcohol abuse and withdrawal Last drink was approximately 1 week ago During this week patient has been having hallucinations and has been very confused Patient does believe that this is secondary to withdrawing from alcohol More alert and oriented at this time able to participate in interview Seems to be passed physical withdrawal symptoms at this time so we will hold off on starting phenobarbital We will give Valium p.r.n. for anxiety Addiction medicine consultation Transaminitis AST 271, ALT 178, GGT 1601 Ammonia 50 Secondary to alcohol abuse Abdominal ultrasound showing hepatomegaly and hepatic steatosis Toxic encephalopathy 2/2 EtOH abuse Wernicke's encephalopathy in the setting of confabulatory behavior, visual hallucinations and poor memory these issues have resolved, and the patient is currently alert and oriented to person place time and situation. No reported visual hallucination continue thiamine 200 mg IV once a day Encouraged discontinuation of alcohol DVT prophylaxis with apixaban Full code Total time managing care of this patient today: 45 minutes. Quality Stroke Does the patient have a stroke diagnosis?: No VTE Prior VTE?: No VTE Risk Level:: Medical - moderate - high VTE Device Contraindication: N/A - Device Ordered VTE Drug Contraindication: N/A - Med Ordered
[2024-12-06 03:39] VITALS: BP 120/71; PULSE 65; RESP 18; TEMP 36.6; O2SAT 93
[2024-12-06 07:52] VITALS: BP 104/53; PULSE 71; RESP 18; TEMP 36; O2SAT 94
[2024-12-06] MEDS: Thiamine HCL 200 MG in 0.9 % Sodium Chloride 100 ML 202 MG IV (08:48)
[2024-12-06] MEDS: 0.9 % Sodium Chloride Flush 3 ML SYRINGE IVFLUSH ×3 (09:17→20:26)
--- NOTE | 2024-12-06 11:13 | P.PNIM_ITS ---
Subjective Subjective Date of Service: 12/06/24 Interval History: Significantly better today as compared to yesterday Mental status stable - no further hallucinations visual or auditory Patient reports feeling back to normal, with improvement in cognitive function; reports back to baseline No SI/HI. Patient feels well overall. Eating and drinking well. No tremulousness, nystagmus, visual disturbances, anxiety, palpitations. Review of Systems Review of Systems: Yes all other systems are reviewed and are negative Physical Exam 2 Exam: Exam: General: A&O x3, oriented to time place person and situation, comfortable, no pain Cardiac: S1, S2 auscultated with no S3/4, no MRG. Well perfused. Respiratory: Normal breath sounds auscultated throughout all lung zones, without wheezing, rales. Normal rate. GI/ : No abdominal pain on palpation, no masses or distentions. MSK: Normal ambulation without pain at bony prominences or musculature Neurological: Normal neurological examination on overview, without obvious CN II-XII abnormalities. Psychiatry: Normal thought process and judgment. No visual or auditory hallucinations. No SI/HI Vital Signs: Vital Signs: Last Vital Signs Temp 96.8 F 12/06/24 07:52 Pulse 71 12/06/24 07:52 Resp 18 12/06/24 07:52 BP 104/53 L 12/06/24 07:52 Pulse Ox 94 12/06/24 07:52 O2 Del Method Room Air 12/06/24 07:52 BMI result Body Mass Index 41.4 Objective Data Active Medications Acetaminophen (Acetaminophen 325 Mg Tablet) 650 mg PO Q6H PRN PRN Reason: Pain, Mild 1-3,fever,headache Apixaban (Apixaban 5 Mg Tablet) 5 mg PO BID [facility] Last Admin: 12/06/24 08:48 Dose: 5 mg Documented By: PEDRITO Calcium Carbonate (Calcium Carbonate 750 Mg Tab.Chew) 750 mg PO Q4H PRN PRN Reason: Heartburn Folic Acid (Folic Acid 1 Mg Tablet) 1 mg PO DAILY [facility] [place] Last Admin: 12/06/24 08:48 Dose: 1 mg Documented By: PEDRITO Thiamine HCl 200 mg/ Sodium (Chloride) 102 mls @ 202 mls/hr IV DAILY [facility] [place] Last Infusion: 12/06/24 09:22 Dose: Infused Documented By: PEDRITO Lorazepam (Lorazepam 0.5 Mg Tablet) 0.5 mg PO Q8H PRN PRN Reason: Anxiety Last Admin: 12/04/24 21:34 Dose: 0.5 mg Documented By: ERIC Magnesium Hydroxide (Milk Of Magnesia 30 Ml Oral.Susp) 30 ml PO DAILY PRN PRN Reason: Constipation Melatonin (Melatonin 3 Mg Tablet) 6 mg PO BEDTIME PRN PRN Reason: Insomnia Last Admin: 12/04/24 21:35 Dose: 6 mg Documented By: ERIC Metoprolol Tartrate (Metoprolol Tartrate 25 Mg Tablet) 25 mg PO BID [facility]; Protocol Last Admin: 12/06/24 08:48 Dose: 25 mg Documented By: PEDRITO Multivitamins/Vitamin C (Multivitamin Tablet) 1 tab PO DAILY [facility] [place] Last Admin: 12/06/24 08:48 Dose: 1 tab Documented By: PEDRITO Olanzapine (Olanzapine 5 Mg Tablet) 5 mg PO DAILY PRN PRN Reason: Hallucinations Last Admin: 12/04/24 23:48 Dose: 5 mg Documented By: ERIC Sodium Chloride (0.9 % Sodium Chloride Flush 3 Ml Syringe) 3 ml IVFLUSH QSHIFT [facility] [place] Last Admin: 12/06/24 09:17 Dose: 3 ml Documented By: PEDRITO Labs 12/05/24 06:26 12/05/24 06:26 Assessment and Plan (1) Alcohol abuse: Status: Acute (2) Alcohol withdrawal: Status: Acute (3) Cardiomyopathy: Status: Acute (4) HFrEF (heart failure with reduced ejection fraction): Status: Acute (5) Atrial fibrillation with RVR: Status: Acute (6) Delirium due to hepatic encephalopathy: Status: Acute (7) Wernicke encephalopathy: Status: Acute (8) Toxic encephalopathy: Status: Acute (9) Metabolic encephalopathy: Status: Acute Plan 34-year-old man, With a background history of alcohol abuse, HFrEF ( subjectively reports 20%), atrial fibrillation noncompliant with medications or anticoagulation, presents with altered mental status, and visual hallucinations in the setting of alcohol withdrawal, admitted with toxic encephalopathy & superimposed Wernicke encephalopathy and atrial fibrillation with RVR. Atrial fibrillation with rapid ventricular response History of AFib, reported that at 1 time he was on Eliquis and amiodarone but lost his insurance so has not been on that for over a year Stopped metoprolol about 3 months ago Received 1 dose of metoprolol 50 mg in the ER Cardiology recommendations appreciated Monitor on telemetry [id number] Score score 2 ( cardiomyopathy, HTN) PLAN - metoprolol 25 mg b.i.d. p.o. - echocardiography - discontinue diltiazem - continue apixaban 5 mg b.i.d. p.o. - continue cardiac telemetry Chronic HFrEF - subjectively reports 20% patient reports having been diagnosed with CHF with a reduced ejection fraction. He reports that it was around 20% last time he was evaluated by Cardiology. Patient has continued to drink alcohol, and reports that his atrial fibrillation has recurred since. No evidence of acute CHF exacerbation at this time. Plan as above. Alcohol abuse and withdrawal Last drink was approximately 1 week ago During this week patient has been having hallucinations and has been very confused Patient does believe that this is secondary to withdrawing from alcohol More alert and oriented at this time able to participate in interview Seems to be passed physical withdrawal symptoms at this time so we will hold off on starting phenobarbital We will give Valium p.r.n. for anxiety Addiction medicine consultation Discontinue sitter 1-1 Transaminitis AST 271, ALT 178, GGT 1601 Ammonia 50 Secondary to alcohol abuse Abdominal ultrasound showing hepatomegaly and hepatic steatosis Toxic encephalopathy 2/2 EtOH abuse Metabolic encephalopathy leading to Wernicke's encephalopathy Noted with of confabulatory behavior, visual hallucinations and poor memory These issues have resolved, and the patient is currently alert and oriented to person place time and situation. No reported visual hallucination Back to neurocognitive baseline-alert and oriented to person place time and situation Continue thiamine 200 mg IV once a day Encouraged discontinuation of alcohol Discontinue 1-1 sitter [facility] - VTE: Apixaban 5 mg b.i.d. - CODE STATUS: Full code - DIET: Low-sodium diet Total time managing care of this patient today: 45 minutes. Quality Stroke Does the patient have a stroke diagnosis?: No VTE Prior VTE?: No VTE Risk Level:: Medical - moderate - high VTE Device Contraindication: N/A - Device Ordered VTE Drug Contraindication: N/A - Med Ordered
[2024-12-06 12:00] VITALS: BP 104/49; PULSE 71; RESP 20; TEMP 36.6; O2SAT 93
--- NOTE | 2024-12-06 14:25 | PM.PNCARD ---
Subjective Subjective Date of Service: 12/06/24 Interval history: Seen and examined at bedside. Back in sinus. Physical Exam Vital Signs: Last Vital Signs Temp 97.9 F 12/06/24 12:00 Pulse 71 12/06/24 12:00 Resp 20 12/06/24 12:00 BP 104/49 L 12/06/24 12:00 Pulse Ox 93 12/06/24 12:00 O2 Del Method Room Air 12/06/24 12:00 BMI result Body Mass Index 41.4 GENERAL APPEARANCE: in no acute distress. NECK: no carotid bruit, no jugular venous distention. SKIN: no suspicious lesions, warm and dry. HEART: no murmurs, regular rate and rhythm. LUNGS: clear to auscultation bilaterally. ABDOMEN: soft, nontender. EXTREMITIES: no edema. PERIPHERAL PULSES: equal. NEUROLOGIC: No gross deficits, AAO X 3 Objective Labs and Meds 12/05/24 06:26 12/05/24 06:26 Progress Note: A&P Assessment and plan (1) Atrial fibrillation with RVR: Status: Acute Plan 34 male with PAF and alcoholism. Back in sinus rhythm. Advised him to stop drinking. Can DC on Toprol XL 25 mg. Will review echo. Time Spent With Patient Time: Total time managing care of this patient today ____ minutes. Progress Note: Quality Stroke Does the patient have a stroke diagnosis?: No Procedures Date of Service Date of Service: 12/06/24
[2024-12-06 16:00] VITALS: BP 120/72; PULSE 66; RESP 20; TEMP 36.7; O2SAT 96
--- NOTE | 2024-12-06 18:28 | MHC.RECOVRN ---
Patient had a positive screen for unhealthy alcohol use on admission, subsequently, met with this underwriter mortgage loan to discuss alcohol use, recovery supports, and concerns related to increased risk of alcohol related problems.? Patient reports consuming alcohol on the weekends. ?I usually will have a few shots of Smirnoff Root beer or Iuka Adrian to get started, then a few IPA?s, then a few more shots to wind down? Pt reports during Covid, he was home and not working and noticed he started to drink more. When he went back to work he noticed some withdrawal symptoms and began to take ?a few shots here and there at work to take the edge off?. Pt states he then was able to stop drinking on his own for approximately 1 year ?on willpower and cold turkey?, however he did return to use.? Pts answers fluctuate regarding his goals for his alcohol use. He reports wanting to completely stop, then reports wanting to be able to moderate his drinking. Discussed how alcohol use has impacted health, including negative impact on mental health and overall physical well being.? Discussed risk and reduction strategies including drinking below the recommended limit, drinking water between beverages containing alcohol, and the risks of attempting to stop drinking on his own after a period of continued use. Provided pt with written resources including information on inpatient and outpatient treatment, KIM, harm reduction and recovery coaching.? Pt has agreed to start on Naltrexone and accepted a consult and appt to [facility] which has been added to his discharge paperwork.? Pt declines further intervention for AUD at this time.? Pt was provided with TW?s contact information if questions or concerns arise, which he denies at this time.? TW available as needed for continued support and resources.?
[2024-12-06 18:58] VITALS: BP 114/66; PULSE 75; RESP 20; TEMP 36.8; O2SAT 94
[2024-12-06 20:26] VITALS: BP 116/71; PULSE 73
[2024-12-07] VITALS: BP 99/59; PULSE 64; RESP 20; TEMP 36.8; O2SAT 93
[2024-12-07 04:00] VITALS: BP 99/57; PULSE 66; RESP 20; TEMP 36.8; O2SAT 95
[2024-12-07 07:43] LABS: Alanine Aminotransferase 177 U/L (0-40); Albumin Level 3.5 g/dL (3.5-5.0); Alkaline Phosphatase 127 U/L (39-117); Anion Gap 12 (12-20); Aspartate Amino Transferase 218 U/L (5-37); Blood Urea Nitrogen 9 mg/dL (9-16); Calcium 8.5 mg/dL (8.4-10.2); Carbon Dioxide 24 mmol/L (22-29); Chloride 106 mmol/L (96-108); Creatinine Clr Calc Pharmacy 169.0; Estimated Glomerular Filt Rate > 60; Potassium 3.5 mmol/L (3.3-5.1); Sodium 138 mmol/L (135-145); Total Protein 6.4 g/dL (6.5-8.0)
[2024-12-07 07:52] VITALS: BP 110/55; PULSE 64; RESP 18; TEMP 37; O2SAT 95
--- NOTE | 2024-12-07 09:17 | PM.DS ---
DS: Providers Provider Date of Service: 12/07/24 Date of admission: 12/04/24 06:35 Date of discharge: 12/07/24 Primary care physician: None Physician Consults: 12/04/24 06:36 Consult to Psychiatry Routine Consulting Provider: [facility] Psych Covering Reason for consultation: Psychosis Has provider been notified: No 12/04/24 11:26 Consult to Cardiology Routine Consulting Provider: [facility] Cardiovascular Specialists Reason for consultation: afib rvr 12/04/24 11:31 Addiction Medicine Provider Routine Consulting Provider: Addiction Covering Reason for consultation: etoh 12/06/24 15:26 Consult to Comprehensive Care Routine Consulting Provider: [facility] Comprehensive [facility] DS: Diagnosis Discharge Diagnosis (1) Atrial fibrillation with RVR: Status: Acute (2) Delirium due to hepatic encephalopathy: Status: Acute DS: Summary Hospital Course Hospital Course: 34-year-old man, With a background history of alcohol abuse, HFrEF ( subjectively reports 20%), atrial fibrillation noncompliant with medications or anticoagulation, presents with altered mental status, and visual hallucinations in the setting of alcohol withdrawal, admitted with toxic encephalopathy & superimposed Wernicke encephalopathy and atrial fibrillation with RVR. PRESENTATION 34-year-old patient presenting to the ER with confusion and hallucinations. Apparently the patient was seen at [facility] last week for evaluation of rapid heart rate. Patient does have a history of paroxysmal atrial fibrillation with rapid ventricular response and alcohol abuse. Apparently while being treated at [facility] patient signed out against medical advice even though he was experiencing hallucinations and delusions. After discussion with his mother and primary care provider he ended up going back to [facility] and he again left against medical advice. He has been having hallucinations and confusion likely secondary to alcohol withdrawal. During examination in the ED patient is alert and oriented x3 and conversational. In the ED, AST 271, ALT 178, GGT 1601, bilirubin 12.1, abdominal ultrasound with hepatomegaly and hepatic steatosis, head CT negative for any acute abnormalities. Patient was given metoprolol, IV thiamine in the ER. He will be admitted for further management of atrial fibrillation with rapid ventricular response and acute on chronic hepatic encephalopathy. PROBLEM LIST Atrial fibrillation with rapid ventricular response History of AFib, reported that at 1 time he was on Eliquis and amiodarone but lost his insurance so has not been on that for over a year Stopped metoprolol about 3 months ago Received 1 dose of metoprolol 50 mg in the ER Cardiology recommendations appreciated Monitor on telemetry [id number] Score score 2 ( cardiomyopathy, HTN) ECHO completed showing recovered EF to 50-55% without valvulopathy (mild RV dysfunction) RECOMMENDATIONS - metoprolol 25 mg b.i.d. p.o. - continue apixaban 5 mg b.i.d. p.o. - Consider outpatient holter to DC apixaban if no evidence of recurrence of AFib Chronic diastolic, recovered HFpEF 55% (20%) Patient reports having been diagnosed with CHF with a reduced ejection fraction. He reports that it was around 20% last time he was evaluated by Cardiology. Patient has continued to drink alcohol, and reports that his atrial fibrillation has recurred since. No evidence of acute CHF exacerbation at this time. ECHO completed showing recovered EF to 50-55% without valvulopathy (mild RV dysfunction) Plan as above. Consider outpatient holter to DC metoprolol if no evidence of recurrence of AFib Alcohol abuse and withdrawal Last drink was approximately 1 week ago During this week patient has been having hallucinations and has been very confused Patient does believe that this is secondary to withdrawing from alcohol More alert and oriented at this time able to participate in interview Seems to be passed physical withdrawal symptoms at this time so we will hold off on starting phenobarbital No evidence of withdrawal x24 hours off benzo's Addiction medicine consultation Naltrexone on discharge Transaminitis AST 271, ALT 178, GGT 1601 Ammonia 50 Secondary to alcohol abuse Abdominal ultrasound showing hepatomegaly and hepatic steatosis No acute issues or complications during inpatient stay Toxic encephalopathy 2/2 EtOH abuse Metabolic encephalopathy leading to Wernicke's encephalopathy Noted with of confabulatory behavior, visual hallucinations and poor memory These issues have resolved, and the patient is currently alert and oriented to person place time and situation. No reported visual hallucination Back to neurocognitive baseline-alert and oriented to person place time and situation Encouraged discontinuation of alcohol Continue Thiamine in outpatient setting Status at Discharge Functional status at discharge: independent ambulation Overall status at discharge: patient is back to baseline Time Attestation Total time managing care of this patient today: 35 mintues. Discharge Coordination Time (in mins): 15 Quality: Safe Use of Opioids Does Pt have an Active Cancer Diagnosis on the Problem List?: No Quality: Stroke Does the patient have a stroke diagnosis?: No Physical Exam Exam: Exam: General: A&O x3, oriented to time place person and situation, comfortable, no pain Cardiac: S1, S2 auscultated with no S3/4, no MRG. Well perfused. Respiratory: Normal breath sounds auscultated throughout all lung zones, without wheezing, rales. Normal rate. GI/ : No abdominal pain on palpation, no masses or distentions. MSK: Normal ambulation without pain at bony prominences or musculature Neurological: Normal neurological examination on overview, without obvious CN II-XII abnormalities. Psychiatry: Normal thought process and judgment. No visual or auditory hallucinations. No SI/HI Vital Signs: Vital Signs: Last Vital Signs Temp 98.6 F 12/07/24 07:52 Pulse 64 12/07/24 07:52 Resp 18 12/07/24 07:52 BP 110/55 L 12/07/24 07:52 Pulse Ox 95 12/07/24 07:52 O2 Del Method Room Air 12/07/24 07:52 BMI result Body Mass Index 41.4 DS: Data Data Completed and Pending Labs on day of discharge: Laboratory Results - last 24 hr 12/07/24 06:57 Hold Purple Top SEE NOTE Sodium 138 Potassium 3.5 Chloride 106 Carbon Dioxide 24 Anion Gap 12 BUN 9 Creatinine 0.78 Estim Creat Clear Calc 169.0 Estimated GFR > 60 Random Glucose 92 Calcium 8.5 Total Bilirubin 7.9 H AST 218 H ALT 177 H Alkaline Phosphatase 127 H Total Protein 6.4 L Albumin 3.5 Discharge Plan Discharge Anticipated Discharge Date/Time: 12/07/24 09:20 Patient Disposition: Home, Self-Care Discharge Diagnosis: Acute EtOH withdrawal with metabolic/toxic encephalopathy/Wernicke's encephalopathy, c/b AFib RVR Referrals: [facility] [Provider Group] - 12/10/24 3:00 pm Referral Note: This is an intake appt to begin Naltrexone. Please bring ID and insurance card if available. If you are unable to keep this appointment, please call the office to reschedule. Physician,None [Primary Care Provider, Medical] - 1 Week Discharge Medications: New folic acid 1 mg Tablet 1 mg PO DAILY 30 Days Qty: 30 0RF Eliquis 5 mg Tablet 5 mg PO BID 30 Days Qty: 60 0RF naltrexone 50 mg tablet 50 mg PO DAILY Qty: 30 0RF thiamine HCl (vitamin B1) 100 mg tablet 100 mg PO DAILY Qty: 30 0RF Continued metoprolol succinate 25 mg tablet extended release 24 hr 50 mg PO DAILY 30 Days Qty: 30 0RF Discharge Orders: Discharge Order (Routine); Ordered 12/07/24 Ordered By: Edda Brooks Diet: Advance to usual diet Activity on Discharge: As tolerated Stand Alone Forms: Patient Portal Discharge page Print Language: Choose Not To Answer Care Plan Goals: As above Health Concerns: As above Plan of Treatment: Follow up with PCP within 1 week of discharge Follow up on LFTs by PCP Follow up with Cardiology in outpatient setting Continue taking apixaban and metoprolol ; to be reassessed by Cardiology Continue taking naltrexone, thiamine and folic acid ; to be reassessed by PCP/addiction Medicine Assessment: Patient is hemodynamically stable on discharge, with recovery to baseline mental status of alert and orientation x4. No disorganized thought process, SI/HI. Safe for DC home with outpatient follow up
[2024-12-07] MEDS: Thiamine HCL 200 MG in 0.9 % Sodium Chloride 100 ML 202 MG IV (09:51)
[2024-12-07] MEDS: 0.9 % Sodium Chloride Flush 3 ML SYRINGE IVFLUSH (09:55)
--- NOTE | 2024-12-07 11:05 | P.PNADD_ITS ---
Subjective Subjective Date of Service: 12/07/24 Reason For Visit: Rapid A-fib, psychosis, liver failure Interim History: Patient seen in follow up for AUD mental status much improved-alert & oriented X4 Discussed events leading up to hospitalization Patient reports he had been drinking 10-12 shots daily for some time, and over a week decreased to 5-6 shots This is prior to presenting to [facility]. He reports previous admission with DTs Discussed goals related to alcohol as he expressed interest in restarting Naltrexone. He reports his goal is complete abstinence. He reports 2 periods with no alcohol (almost 2 years and one year) and each time he was taking Naltrexone and engaged in activities that he felt were positive for his overall mental health. Patient very aware of how alcohol impacts his chronic health issues, including AFIB. Discussed benefits and importance of nutrition and vitamins-b complex in particular with AUD. No withdrawal sx since presentation Denies anxiety, but worries it may show up --discussed post acute withdrawal syndrome, and encouraged patient to discuss with [facility] Review of Systems Acute medical concerns: Yes Review of Systems Constitutional: Reports as per HPI and Reports no additional constitutional complaints Mental Status Exam Mental Status Exam Patient Appearance: Appropriate Level of Consciousness: Awake, Appropriate and Alert Patient Behavior: Appropriate and Cooperative Affect Description: Calm Speech Pattern: Clear Hallucinations: None Delusions: Not Present Thought Process: Intact Thought Content: positive for Intact Judgement: Good Diagnostics Vital Signs (24Hr): Vital Signs - 24 hr 12/06/24 12:00 12/06/24 16:00 12/06/24 18:58 Temperature 97.9 F 98.0 F 98.2 F Pulse Rate 71 66 75 Respiratory Rate 20 20 20 Blood Pressure 104/49 L 120/72 114/66 Pulse Oximetry 93 96 94 Oxygen Delivery Method Room Air Room Air Room Air 12/06/24 20:26 12/07/24 00:00 12/07/24 04:00 Temperature 98.3 F 98.3 F Pulse Rate 73 64 66 Respiratory Rate 20 20 Blood Pressure 116/71 99/59 L 99/57 L Pulse Oximetry 93 95 Oxygen Delivery Method Room Air Room Air 12/07/24 07:52 Temperature 98.6 F Pulse Rate 64 Respiratory Rate 18 Blood Pressure 110/55 L Pulse Oximetry 95 Oxygen Delivery Method Room Air BMI result Body Mass Index 41.4 Labs 12/05/24 06:26 12/07/24 06:57 Labs: Laboratory Results - last 48 hr 12/07/24 06:57 Hold Purple Top SEE NOTE Sodium 138 Potassium 3.5 Chloride 106 Carbon Dioxide 24 Anion Gap 12 BUN 9 Creatinine 0.78 Estim Creat Clear Calc 169.0 Estimated GFR > 60 Random Glucose 92 Calcium 8.5 Total Bilirubin 7.9 H AST 218 H ALT 177 H Alkaline Phosphatase 127 H Total Protein 6.4 L Albumin 3.5 Imaging Radiology Impressions: ITS Impressions Abdomen Ultrasound 12/04/24 07:47 IMPRESSION: Hepatomegaly and hepatic steatosis. A normal waveform cannot be obtained in the portal vein which may be occluded. This could be further evaluated with contrast-enhanced CT. Electronically signed by: Glen Tompkins MD 12/04/2024 08:14 AM EDT RP Medications Medications Current Medications Acetaminophen (Acetaminophen 325 Mg Tablet) 650 mg PO Q6H PRN PRN Reason: Pain, Mild 1-3,fever,headache Apixaban (Apixaban 5 Mg Tablet) 5 mg PO BID [facility] Last Admin: 12/07/24 09:51 Dose: 5 mg Calcium Carbonate (Calcium Carbonate 750 Mg Tab.Chew) 750 mg PO Q4H PRN PRN Reason: Heartburn Folic Acid (Folic Acid 1 Mg Tablet) 1 mg PO DAILY [facility] Last Admin: 12/07/24 09:51 Dose: 1 mg Thiamine HCl 200 mg/ Sodium (Chloride) 102 mls @ 202 mls/hr IV DAILY [facility] Last Infusion: 12/07/24 11:03 Dose: Infused Lorazepam (Lorazepam 0.5 Mg Tablet) 0.5 mg PO Q8H PRN PRN Reason: Anxiety Last Admin: 12/04/24 21:34 Dose: 0.5 mg Magnesium Hydroxide (Milk Of Magnesia 30 Ml Oral.Susp) 30 ml PO DAILY PRN PRN Reason: Constipation Melatonin (Melatonin 3 Mg Tablet) 6 mg PO BEDTIME PRN PRN Reason: Insomnia Last Admin: 12/04/24 21:35 Dose: 6 mg Metoprolol Tartrate (Metoprolol Tartrate 25 Mg Tablet) 25 mg PO BID [facility]; Protocol Last Admin: 12/07/24 09:51 Dose: 25 mg Multivitamins/Vitamin C (Multivitamin Tablet) 1 tab PO DAILY [facility] Last Admin: 12/07/24 09:51 Dose: 1 tab Olanzapine (Olanzapine 5 Mg Tablet) 5 mg PO DAILY PRN PRN Reason: Hallucinations Last Admin: 12/04/24 23:48 Dose: 5 mg Sodium Chloride (0.9 % Sodium Chloride Flush 3 Ml Syringe) 3 ml IVFLUSH QSHIFT SHAYNE Last Admin: 12/07/24 09:55 Dose: 3 ml Allergies Allergies Allergy/AdvReac Type Severity Reaction Status Date / Time No Known Allergies Allergy Verified 12/04/24 00:49 Assessment & Plan Assessment & Plan (1) Alcohol use disorder, severe, dependence: Status: Acute Code(s): F10.20 - Alcohol dependence, uncomplicated Assessment and Plan: * restart naltrexone 50mg QD * Continue thiamine and folic acid * [facility] appt scheduled --reviewed IOP as an option, patient to review. He would like to follow up with Pratik remy. Total time managing care of this patient today __35__ minutes.
--- NOTE | 2024-12-07 11:32 | MHC.CM.PN ---
Pt has been medically cleared to ID, he will go home via family transport, plan is home, self care.
[2024-12-07 12:00] VITALS: BP 107/64; PULSE 61; RESP 18; TEMP 36.7; O2SAT 94
--- NOTE | 2024-12-07 16:54 | P.CDIM_ITS ---
PROVIDER RESPONSE TEXT: To clarify, the appropriate diagnosis supported by the clinical indicators: Obesity Due to excess calories QUERY TEXT: PHYSICIAN'S DOCUMENTATION REQUEST Date of Query: 12/07/2024 08:49 AM EDT Patient Name: Patricio Cruz Admit Date: 12/04/2024 Dear Edda Brooks MD, A review of the medical record indicates additional documentation may be needed. Please review below and update the documentation accordingly. Clinical Indicators: Height: ( ) 5'8 Weight: ( ) 123.4 kg BMI: ( ) 41.4 Other Clinical Notes Supporting Significance of the BMI: If possible, please provide an associated diagnosis related to the abnormal BMI, such as: Overweight Obesity Due to excess calories Obesity Drug induced Obesity Due to other cause Specify the other cause Severe or Morbid Obesity With alveolar hypoventilation Severe or Morbid Obesity Without alveolar hypoventilation BMI is not significant Other (explain) Clinically unable to determine (explain) Thank you, Jocelin Barroso RN Use of terms such as suspected, likely, concern for, or probable (associated with a specific diagnosis that is being evaluated, monitored, or treated as if it exists) are acceptable and can be coded in the inpatient setting, when documented at the time of discharge. Please use your independent medical judgment in providing your response. THIS QUERY IS PART OF THE PERMANENT MEDICAL RECORD
== END 2024-12-07 15:19 | disposition home or self-care (01) | DRG 775 ==
LOC: HO.ED 06:20 → HO.EDOVER 06:46 → HO.IMC 12-05 01:25
PROVIDERS: Nurse Practitioner Acute Care; Physician Assistant; Admitting Provider Internal Medicine; Emergency Provider Emergency Medicine; PCP Physician Assistant; Visit Provider Hospitalist
DX: F10.239 Alcohol dependence with withdrawal, unspecified (principal); G92.8 Other toxic encephalopathy; E51.2 Wernicke's encephalopathy; F05 Delirium due to known physiological condition; I50.22 Chronic systolic (congestive) heart failure; K76.82 Hepatic encephalopathy; K76.0 Fatty (change of) liver, not elsewhere classified; I48.0 Paroxysmal atrial fibrillation; F17.210 Nicotine dependence, cigarettes, uncomplicated; I42.9 Cardiomyopathy, unspecified; Z71.6 Tobacco abuse counseling; E66.09 Other obesity due to excess calories; Z68.41 Body mass index [BMI] 40.0-44.9, adult; Z79.899 Other long term (current) drug therapy
CPT/HCPCS: 36415; 70450; 76705; 80048; 80053; 80143; 80179; 80307; 81003; 82140; 82248; 82607; 82746; 82977; 85025; 85027; 85610; 93005; 93306; 99285; J1163; J1630; J1650; J3360; J3411; Q9957; S9485

== ENCOUNTER → 2024-12-04 01:48 | Outpatient (BNV) | payer OTHER, SELFPAY | PROVIDERS: Admitting Provider Internal Medicine; Emergency Provider Emergency Medicine; Visit Provider Internal Medicine Cardiovascular Disease | DX: I48.91 Unspecified atrial fibrillation (principal) | CPT/HCPCS: 93010 ==

== ENCOUNTER → 2024-12-04 04:23 | Outpatient (BNV) | payer OTHER, SELFPAY | PROVIDERS: Admitting Provider Internal Medicine; Emergency Provider Emergency Medicine; Visit Provider Radiology Diagnostic Radiology | DX: R41.82 Altered mental status, unspecified (principal); K76.0 Fatty (change of) liver, not elsewhere classified; R16.0 Hepatomegaly, not elsewhere classified | CPT/HCPCS: 70450; 76705 ==

== ENCOUNTER 2024-12-04 06:35 | Outpatient (BNV) | payer OTHER, SELFPAY | END 2024-12-05 07:00 | PROVIDERS: Admitting Provider Internal Medicine; Emergency Provider Emergency Medicine; Visit Provider Internal Medicine Cardiovascular Disease | DX: I48.91 Unspecified atrial fibrillation (principal) | CPT/HCPCS: 93306 ==

== ENCOUNTER → 2024-12-04 06:35 | Outpatient (BNV) | payer OTHER, SELFPAY | PROVIDERS: Admitting Provider Internal Medicine; Emergency Provider Emergency Medicine; Visit Provider Internal Medicine Cardiovascular Disease | DX: I48.91 Unspecified atrial fibrillation (principal) | CPT/HCPCS: 99223 ==

== ENCOUNTER → 2024-12-04 06:35 | Outpatient (BNV) | payer OTHER, SELFPAY | PROVIDERS: Admitting Provider Internal Medicine; Emergency Provider Emergency Medicine; Visit Provider Nurse Practitioner Psychiatric/Mental Health | DX: F05 Delirium due to known physiological condition (principal); K76.82 Hepatic encephalopathy | CPT/HCPCS: 99232 ==

== ENCOUNTER → 2024-12-04 06:35 | Outpatient (BNV) | payer OTHER, SELFPAY | PROVIDERS: Admitting Provider Internal Medicine; Emergency Provider Emergency Medicine; Visit Provider Hospitalist | DX: I48.91 Unspecified atrial fibrillation (principal); I42.9 Cardiomyopathy, unspecified; F10.939 Alcohol use, unspecified with withdrawal, unspecified; E51.2 Wernicke's encephalopathy; I50.20 Unspecified systolic (congestive) heart failure | CPT/HCPCS: 99232 ==

== ENCOUNTER 2024-12-10 15:14 | Outpatient (AMB) | payer OTHER, SELFPAY ==
--- NOTE | 2024-12-10 15:10 | MHC.OFFVIS ---
Vital Signs 12/10/24 15:22 Height 5 ft 8 in Weight 281 lb BMI 42.7 Pulse 72 Pulse Source Pulse Oximeter Pulse Oximetry (%) 98 Oxygen Delivery Method Room Air Intake Visit Reasons: MAT Intake Allergies No Known Allergies Allergy (Verified 12/10/24 15:23) [facility] Medical History (Updated 12/07/24 @ 11:05 by Gracie Acosta CNP) Atrial fibrillation Surgical History No pertinent past surgical history Social History Household Members: Significant Other Housing: Apartment Do you presently have visiting nurse or other home services: No Patient Tobacco Use Status: Current everyday Tobacco user Tobacco use type: Cigarette Cigarettes Per Day: 4 Years Smoked: 20 e-Cigarette/Vaping Use: Never Used Second Hand Smoke Exposure: No service: No Review of Systems Const All systems reviewed & are unremarkable except as noted in HPI and below Physical Exam Vital Signs: Last Vital Signs Pulse 72 12/10/24 15:22 Pulse Ox 98 12/10/24 15:22 Oxygen Delivery Method Room Air 12/10/24 15:22 BMI result Body Mass Index 42.7 Const General: cooperative Assessment & Plan Assessment & Plan (1) Alcohol abuse: Comment: He has been started on Naltrexone,MVI and folic acid Code(s): F10.10 - Alcohol abuse, uncomplicated Category: Social Hx Plan: would continue naltrexone Plan see as scheduled for followup Medications: New naltrexone 50 mg PO DAILY 30 tabs 1RF 30 days folic acid 1 mg PO DAILY 30 tabs 11RF 30 days thiamine HCl (vitamin B1) 100 mg PO DAILY 30 caps 11RF 30 days Coding Level of Care Code New Pt Level 3 (04537) Diagnoses Alcohol abuse F10.10 MAT Intake Nursing Intake Reason for visit: MAT Intake Are you currently using?: No What are you taking?: Alcohol When was your last use?: 11/25/24 How much?: average of 10 drinks - hard Liquor What is your source of income?: employed What is your current relationship status?: significant other Current PCP: Merle Ramos [facility] Referral Source: Recent alcohol related inpatient stay at [facility] Substance Abuse History Substance Abuse History (includes route, frequency and quantity): Cocaine (Past use-over 10 years ago), Alcohol (began at , became problematic at 24- average of 10 drinks daily- hard Liquor), Marijuana (few times a week at bedtime) and Tobacco (3-5 cigarettes daily) Social History Domestic Violence concerns: none Children: step/significant other's child in home Do you have a support system?: yes Current mode of transportation?: self Where are you currently residing?: [place] LMP: N/A IV Drug Use Have you ever shared needles?: No Have you ever belonged to a needle exchange program?: No Do you buy needles at a pharmacy?: No Have you ever overdosed?: No Have you ever been hospitalized for an overdose?: No Was Naloxone administered?: Not applicable Recovery History Have you had any periods of recovery?: Yes What is your longest time in recovery?: 1+ years on 2 occasions, between 4464-2017 & [id number] When was the last time you were in recovery?: 23-24 Have you ever had inpatient treatment for your substance abuse disorder?: No Have you been in an inpatient detoxification program?: No Have you been in an inpatient Rehab/[place] house?: No Have you been in an outpatient Methadone Maintenance program?: No Have you been in an outpatient Suboxone Maintenance program?: No Have you been in an AA/NA support program?: Yes (went to a few court ordered meetings after OUI which case was thrown out) Have you had a Recovery Support [place]?: No (Gave information- will follow up) Have you had Peer Support?: No Behavioral Health History Do you have a current provider? If so, who?: Looking for therapy referral diagnosis: none History of other addictive behavior: gambling History of inpatient psychiatric hospitalization? If so, how many? Most Recent? Where?: no History of self harming thoughts?: No History of homicidal or suicidal intentions?: No Medical Conditions Endocarditis?: No Skin Infection: No Seizure related to withdrawal or overdose: No Head or brain injury: No Hepatitis A (if yes, have you been treated?): No Hepatitis B (if yes, have you been treated?): No Hepatitis C (if yes, have you been treated?): No HIV (if yes, have you been treated?): No TB (if yes, have you been treated?): No Other: Yes (A-fib, most recent bout while detoxing though has history of Xarelto and is now on Eliquis) Do you have any chronic pain conditions?: no Legal History History of incarceration: No Currently on parole or probation: No Court mandated programs: No Pending court cases: No DCF involvement: No
[2024-12-10 15:22] VITALS: PULSE 72; O2SAT 98; BMI 42.7
--- OUTSIDE RECORDS SUMMARY | 2024-12-10 19:26 | XMS_ITS | Encounter Summary ---
Author Organization [facility] Address [address] [place] [phone] Phone Care Team Providers Care Enginehouse Brakeman Name Role Phone Soraya Joseph Primary Care Provider [phone] Encounter Details Date Type Department Care Team ([facility] st Contact Info) Description 02/02/2023 Procedure Pass [facility] [address] [place] [address] Social History Tobacco Use Types Packs/Day Years Used Date Smoking Tobacco: Some Days Cigarettes Comments:No smoking in 2 wee ks Alcohol Use Standard Drinks/Week Comments Not Currently 0 (1 standard drink = 0.6 oz pur e alcohol) No drinking in 2 weeks Education Answer Date Recorded Are you interested in more education? Not on antonia e 06/18/2022 Are you concerned about learning? Not on file 06/18/2022 No 06/18/2022 No 06/18/2022 Digital Access Answer Date Recorded No 07/19/2022 No 07/19/2022 Reliable internet access at home? Not on file 07/19/2022 Device with a working camera? Not on file Intimate Partner Violence Answer Date R ecorded Are you denied basic needs s uch as food, clothing, or medical care? No 02/01/2023 In the past 12 months have y ou been in a relationship with a person who hurts, threatens, or tries to control you? No 02/01/2023 Are you denied basic needs s uch as food, clothing, or medical care? No 02/01/2023 In the past 12 months have y ou been in a relationship with a person who hurts, threatens, or tries to control you? No 02/01/2023 Sex and Gender Information Value Date Recorded Sex Assigned at Male 11/22/2019 1:08 PM EDT Legal Sex Male 9:04 PM EDT Gender Identity Male 11/22/2019 1:08 PM EDT Sexual Orientation Straight 11/22/2019 1: 08 PM EDT documented as of this encounter Plan of Treatment Not on file documented as of this encounter Visit Diagnoses Not on filedocumented in this encounter Additional Health Concerns Infection Onset Date Last Indicated Resolved Time CoV-Risk Comment:Per note documentation 11/26/2024 11/27/2024 4:24 PM EDT documented as of this encounter Care Teams Enginehouse Brakeman Relationship Specialty Start Date End Date Soraya Joseph PA [address] [place] [id number] PCP - General 11/22/19 documented as of this encounter Additional Source Comments The information contained in this document represents components of the legal health record. It is not the complete legal health record.[facility]
--- OUTSIDE RECORDS SUMMARY | 2024-12-10 19:26 | XMS_ITS | Encounter Summary ---
Author Organization [facility] Address [address] [place] [id number] Phone Care Team Providers Care Supervising Airplane Pilot Name Role Phone Soraya Joseph Primary Care Provider [phone] Encounter Details Date Type Department Care Team ([facility] st Contact Info) Description 11/26/2024 Procedure Pass [facility] [address] [place] [address] Social History Tobacco Use Types Packs/Day Years Used Date Smoking Tobacco: Some Days Cigarettes Comments:Pt reports smoking about 5 cig/day Alcohol Use Standard Drinks/Week Comments Not Currently 0 (1 standard drink = 0.6 oz pur e alcohol) No drinking in 2 weeks Education Answer Date Recorded Are you interested in more education? Not on antonia e 06/18/2022 Are you concerned about learning? Not on file 06/18/2022 No 06/18/2022 No 06/18/2022 Food Answer Date Recorded Within the past 6 months we worried whether our food would run out before we got money to buy more. Never True 11/30/2024 Within the past 6 months the food we bought just didn't last and we didn't have enough money to get more. Never True Residential Stability Answer Date Recor ded What is your housing situation today? I have keke sing 11/30/2024 How many times have you move d in the past 12 months? Zero (I did not move) 11/30/2024 Paying for Meds Answer Date Recorded Do you have trouble paying for medicines? Yes 11/30/2024 Paying Utility Bills Answer Date Record ed Do you have trouble paying your heating or elect ricity bill? Yes 11/30/2024 Transportation Answer Date Recorded Has the lack of transportati on kept you from medical appointments or from getting medications? No 11/30/2024 Digital Access Answer Date Recorded No 11/30/2024 Yes 11/30/2024 Do you have reliable internet access at home? Ye s 11/30/2024 Do you have a device (e.g., phone, tablet, computer) with a working camera? Yes 11/30/2024 Intimate Partner Violence Answer Date R ecorded Are you denied basic needs s uch as food, clothing, or medical care? No 11/29/2024 In the past 12 months have y ou been in a relationship with a person who hurts, threatens, or tries to control you? No 11/29/2024 Are you denied basic needs s uch as food, clothing, or medical care? No 11/29/2024 In the past 12 months have y ou been in a relationship with a person who hurts, threatens, or tries to control you? No 11/29/2024 Sex and Gender Information Value Date Recorded Sex Assigned at Male 11/22/2019 1:08 PM EDT Legal Sex Male 9:04 PM EDT Gender Identity Male 11/22/2019 1:08 PM EDT Sexual Orientation Straight 11/22/2019 1: 08 PM EDT documented as of this encounter Functional Status * Calculated C-SSRS Risk Score (Lifetime/Recent) Answer Date of Assessment Author No Risk Indicated 11/29/2024 3:59 PM EDT Dina More RN * [employer] Suicide Severity Rating Scale (Screener/Recent Self-Report) Question Answer Date of Assessment Author 1. Wish to be (Past 1 Month) No 025 3:59 PM EDT Dina More RN 2. Non-Specific Active Suici thomas Thoughts (Past 1 Month) No 11/29/2024 3:59 PM EDT Edith More RN 6. Suicidal Behavior (Lifetime) No 3:59 PM EDT Dina More RN documented as of this encounter Plan of Treatment Not on file documented as of this encounter Visit Diagnoses Not on filedocumented in this encounter Additional Health Concerns Infection Onset Date Last Indicated Resolved Time CoV-Risk Comment:Per note documentation 11/26/2024 11/27/2024 4:24 PM EDT documented as of this encounter Care Teams Supervising Airplane Pilot Relationship Specialty Start Date End Date Soraya Joseph PA [address] [place] [id number] PCP - General 11/22/19 documented as of this encounter Additional Source Comments The information contained in this document represents components of the legal health record. It is not the complete legal health record.[facility]
--- OUTSIDE RECORDS SUMMARY | 2024-12-10 19:27 | XMS_ITS | Encounter Summary ---
Author Organization [facility] Address [address] [place] [address] [place] [phone] Phone Care Team Providers Care Client Analyst Name Role Phone Soraya Joseph Primary Care Provider [phone] Encounter Details Date Type Department Care Team (Latest Contact Info) Description 04/28/2020 Transcribe Orders Virtual Department [address] [place] [address] Montse Lynch PA-C [address] [place] [address] [email or web address] Acute alcoholic hepatitis (Primary Dx); RUQ abdominal pain Social History Tobacco Use Types Packs/Day Years Used Date Smoking Tobacco: Former Comments:No smoking in 2 wee ks Alcohol Use Standard Drinks/Week Comments Not Currently 0 (1 standard drink = 0.6 oz pur e alcohol) No drinking in 2 weeks Sex and Gender Information Value Date Recorded Sex Assigned at Male 11/22/2019 1:08 PM EDT Legal Sex Male 9:04 PM EDT Gender Identity Male 11/22/2019 1:08 PM EDT Sexual Orientation Straight 11/22/2019 1: 08 PM EDT documented as of this encounter Plan of Treatment Not on file documented as of this encounter Results * US ABDOMEN LIMITED RIGHT UPPER QUADRANT (05/02/2020 11:35 AM EST) Anatomical Region Laterality Modality Abdomen Ultrasound 05/02/2020 11:4 6 AM EST Impressions 05/02/2020 12:00 PM EST Findings suggesting diffuse fatty infiltration of the hepatic parenchyma. This lowers the sensitivity for the detection of focal lesions. Otherwise normal study. Narrative 05/02/2020 12:00 PM EST US ABDOMEN LIMITED RIGHT UPPER QUADRANT TECHNIQUE: Limited ultrasound evaluation of the abdomen focused on the right upper quadrant. Volumetric sweeps were obtained and reviewed. COMPARISON: None CLINICAL HISTORY: Hepatitis and right upper quadrant pain. FINDINGS: LIVER: No focal lesions. However, parenchyma is generally of d increased echogenicity which limits similar evaluation and lowers the sensitivity for the detection of focal lesions. PORTAL VEIN: Portal vein is patent. BILIARY: Gallbladder: Within normal limits Common bile duct measures 0.5 cm in diameter. PERITONEUM: No free fluid. Procedure Note Jean-Pierre Shah MD - 05/02/2020 US ABDOMEN LIMITED RIGHT UPPER QUADRANT TECHNIQUE: Limited ultrasound evaluation of the abdomen focused on theright upper quadrant. Volumetric sweeps were obtained and reviewed. COMPARISON: None CLINICAL HISTORY: Hepatitis and right upper quadrant pain. FINDINGS: LIVER: No focal lesions. However, parenchyma is generally of d increasedechogenicity which limits similar evaluation and lowers the sensitivityfor the detection of focal lesions. PORTAL VEIN: Portal vein is patent. BILIARY: Gallbladder: Within normal limits Common bile duct measures 0.5 cm in diameter. PERITONEUM: No free fluid. IMPRESSION: Findings suggesting diffuse fatty infiltration of the hepatic parenchyma.This lowers the sensitivity for the detection of focal lesions. Otherwisenormal study. us Montse Lynch PA-C [facility] ABDOMEN Final Result documented in this encounter Visit Diagnoses Diagnosis Acute alcoholic hepatitis- Primary RUQ abdominal pain Abdominal pain, right upper quadrant Acute alcoholic hepatitis RUQ abdominal pain Abdominal pain, right upper quadrant documented in this encounter Additional Health Concerns Infection Onset Date Last Indicated Resolved Time CoV-Risk Comment:Per note documentation 11/26/2024 11/27/2024 4:24 PM EDT documented as of this encounter Care Teams Client Analyst Relationship Specialty Start Date End Date Soraya Joseph PA [address] [place] [address] PCP - General 11/22/19 documented as of this encounter Additional Source Comments The information contained in this document represents components of the legal health record. It is not the complete legal health record.[facility]
--- OUTSIDE RECORDS SUMMARY | 2024-12-10 19:27 | XMS_ITS | Encounter Summary ---
Author Organization [facility] Address [address] [place] [address] Phone Care Team Providers Care Curriculum And Assessment Director Name Role Phone Soraya Joseph Primary Care Provider [phone] Reason for Visit * Reason Comments Medication Refill Encounter Details Date Type Department Care Team ([facility] Contact Info) Description 10/21/2024 Refill [facility] [address] [place] [address] [address], [address] [place] [address] José Macias MD [address], [address] [place] [address] [email or web address] Medication Refill Social History Tobacco Use Types Packs/Day Years [...] documented as of this encounter Visit Diagnoses Diagnosis Medication refill Issue of repeat prescriptions documented in this encounter Additional Health Concerns Infection Onset Date Last Indicated Resolved Time CoV-Risk Comment:Per note documentation 11/26/2024 11/27/2024 5 4:24 PM EDT documented as of this encounter Care Teams Curriculum And Assessment Director Relationship Specialty Start Date End Date Soraya Joseph PA [address] [place] [id number] PCP - General 11/22/19 documented as of this encounter Additional Source Comments The information contained in this document represents components of the legal health record. It is not the complete legal health record[facility]
--- OUTSIDE RECORDS SUMMARY | 2024-12-10 19:27 | XMS_ITS | Clinical Summary ---
Author Organization [facility] Address [address] [place] [id number] Phone Care Team Providers Care Client Relationship Consultant Name Role Phone Soraya Joseph Primary Care Provider [phone] Allergies No known active allergies Medications amiodarone (PACERONE) 200 MG tablet Take 1 tablet (200 mg total) by mouth daily. 90 tablet 3 04/11/19 24 Active Additional Information Patient not taking.Reported on 11/30/2024 rivaroxaban (XARELTO) 20 mg TabIndications:prev ent thromboembolism in chronic atrial fibrillation Take 1 tablet (20 mg total) by mouth daily with dinner. Indications: treatment to prevent blood clots in chronic atrial fibrillation 90 tablet 3 04/11/19 24 Active Additional Information Patient not taking.Reported on 11/30/2024 metoprolol succinate (TOPROL-XL) 25 MG 24 hr tabletIndications:M edication refill take 2 tablets by mouth every day 180 tablet 3 08/01/19 24 Active Additional Information Patient not taking.Reported on 11/30/2024 Active Problems Problem Noted Date Diagnosed Date Alcohol-induced psychosis, with delusions 2024 Assessment & Plan (12/03/2024 10:49 AM EDT): ETOH induced psychosis and/or perhaps steroid induced (pt was on steroids for acute alcoholic hepatitis) or even from Valium itself. Does well with seroquel and improving clearly with abilify- inc dose to 10 mg today and move dose up to earlier in the day Alcohol-induced delirium hallucinosis, worse in the evening. Symptoms are less severe, but still persist. Are mostly visual now and resolve quickly with rescue meds Symptoms may persist for weeks to months without antipsychotic treatment - Continue CIWA - Can Cont prn evening seroquel for breakthrough symptoms, consider scheduling at night - Still interested in rehab at [facility], plan to go there in next couple days if hallucinosis continues to improve Assessment & Plan (12/02/2024 1:10 PM EDT): ETOH induced psychosis and/or perhaps steroid induced (pt was on steroids for acute alcoholic hepatitis) or even form Valium itself. Did well with Seroquel 50 mg first night of readmission. Seroquel held due to increase QT (subsequently resolved). Alcohol-induced delirium hallucinosis, worse in the evening. Symptoms are less severe, but still persist. Are mostly visual since yesterday. Symptoms may persist for weeks to months without antipsychotic treatment - Continue CIWA - Begin abilify 5 mg nightly at dinner (renally metabolized whereas seroquel hepatically metabolized) - Can Cont prn seroquel for breakthrough symptoms - Still interested in rehab at [facility], should be able to go once hallucinosis symptoms under control Assessment & Plan (12/01/2024 1:11 PM EDT): ETOH induced psychosis and/or perhaps steroid induced (pt was on steroids for acute alcoholic hepatitis) or even form Valium itself. Did well with Seroquel 50 mg last night. Hallucinations/psychotic symptoms resolved. QT interval slightly elevated, so will not provide additional Seroquel. Suspect his symptoms were already improving by the time he returned to the hospital. Stopping the steroids likely was helpful as well. He had another episode of confusion last night. Wandered off the unit down to the emergency room. Was unaware of his surroundings. No active hallucinations, more like a delirium picture. Ultimately responded to Valium. This happened after he had gotten 25 mg of Seroquel. Alcohol-induced delirium persists, worsening in the evening. Will monitor for another night. - Continue CIWA - Trial scheduled Valium 5 mg at dinnertime tonight - Continue as needed Seroquel, QT interval is normal Assessment & Plan (11/30/2024 3:51 PM EDT): ETOH induced psychosis and/or perhaps steroid induced (pt was on steroids for acute alcoholic hepatitis) or even form Valium itself. Did well with Seroquel 50 mg last night. Hallucinations/psychotic symptoms resolved. QT interval slightly elevated, so will not provide additional Seroquel. Suspect his symptoms were already improving by the time he returned to the hospital. Stopping the steroids likely was helpful as well. CIWA score is 0. He is amenable to inpatient rehab. Pratik Noel looking at him. He is medically stable for discharge to inpatient rehab.. Will need close outpatient follow-up with GI, monitoring of his LFTs, and cardiology follow-up for his A- fib. For tonight, continue to avoid steroids, benzos. If symptoms recur, would judiciously readminister Seroquel. Assessment & Plan (11/30/2024 3:58 AM EDT): ETOH induced psychosis and/or perhaps steroid induced (pt was on steroids for acute alcoholic hepatitis) or even form Valium itself. Has thus far had good response with valium but will trial a dose of Seroquel tonight- 50 QHS and 25 BID prn psychosis symptoms. He has not had benzos or steroids in 24 hrs and appears improved, thus will not restart these meds at this time. Hypothyroid 11/30/2024 Assessment & Plan (12/03/2024 10:49 AM EDT): -Marked hypothyroid with very elevated TSH and Low FT4 -Because he has some cardiac dysfunction we will start low at just 50 mcg and increase in 4 weeks based on TSH retesting. Assessment & Plan (12/02/2024 1:10 PM EDT): Marked hypothyroid with very elevated TSH and Low FT4 Will need to start replacement. 1.28mcg/kg = 150-160 mcg would be likely his full dose Because he has some cardiac dysfunction we will start low at just 50 mcg and increase in 4 weeks based on TSH retesting. Assessment & Plan (12/01/2024 1:11 PM EDT): Marked hypothyroid with very elevated TSH and Low FT4 Will need to start replacement. 1.28mcg/kg = 150-160 mcg would be likely his full dose Because he has some cardiac dysfunction we will start low at just 50 mcg and increase in 4 weeks based on TSH retesting. Assessment & Plan (11/30/2024 3:51 PM EDT): Marked hypothyroid with very elevated TSH and Low FT4 Will need to start replacement. 1.28mcg/kg = 150-160 mcg would be likely his full dose although because he has some cardiac dysfunction we will start low at just 50 mcg and increase in 4 weeks based on TSH retesting. Assessment & Plan (11/30/2024 6:54 AM EDT): Marked hypothyroid with very elevated TSH and Low FT4 Will need to start replacement. 1.28mcg/kg = 150-160 mcg would be likely his full dose although because he has some cardiac dysfunction we will start low at just 50 mcg and increase in 4 weeks based on TSH retesting. Acute alcoholic hepatitis 11/26/2024 Assessment & Plan (12/03/2024 10:49 AM EDT): - T. bili and LFTs stable - NH3 wnl - Maddrey discriminant score remains below 32; no indication for steroids, was on earlier in stay though score peaked at 28; stopped due to hallucinosis and low score - u/s shows no biliary obstruction or biliary ductal dilation, normal gallbladder, liver diffusely echogenic, portal vein patent -Hep panel negative - cont trending LFTs Assessment & Plan (12/02/2024 1:10 PM EDT): - T. bili and LFTs slowly trending downward - NH3 42 - Maddrey discriminant score remains below 32; no indication for steroids, was on earlier this week though score peaked at 28; stopped due to hallucinosis and low score - u/s shows no biliary obstruction or biliary ductal dilation, normal gallbladder, liver diffusely echogenic, portal vein patent -Hep panel negative - cont trending LFTs Assessment & Plan (12/01/2024 1:11 PM EDT): - Jacob gonzalez began a downward trend, but bumped up a bit today presumably because steroids were stopped - Maddrey discriminant score remains below 32 today - u/s shows no biliary obstruction or biliary ductal dilation, normal gallbladder, liver diffusely echogenic, portal vein patent -Hep panel negative - cont trending LFTs Assessment & Plan (11/30/2024 3:51 PM EDT): - Jacob gonzalez rising -Maddrey discriminant score 15 as presentation - and now Day 3 is 28.5, both below 32 where steroids are indicated and given his psychosis, defer resuming. - u/s shows no biliary obstruction or biliary ductal dilation, normal gallbladder, liver diffusely echogenic, portal vein patent -Hep panel negative - Labs slowly trending downward - cont trending LFTs over the next 2-3 weeks Assessment & Plan (11/30/2024 3:53 AM EDT): - Jacob gonzalez rising -Maddrey discriminant score 15 as presentation - and now Day 3 is 28.5, both below 32 where steroids are indicated and given his psychosis I will hold off on restarting this. - u/s shows no biliary obstruction or biliary ductal dilation, normal gallbladder, liver diffusely echogenic, portal vein patent -Hep panel negative - cont trending LFTs Assessment & Plan (11/28/2024 8:26 PM EDT): - Jacob gonzalez elevated 6.5, AST 231 ALT 93, INR 1.2 -Maddrey discriminant score 15 as presentation - - increase in LFTs despite cessation of alcohol, - GI recommends consider prednisolone 40 mg daily - ordered - ppi for gut prophylaxis - u/s no biliary obstruction or biliary ductal dilation, normal gallbladder, liver diffusely echogenic, portal vein patent -For thoroughness check viral hepatitis studies - hep B antigen negative, hep b core ab pending, hep C pcr pending, hep A negative - cont trending LFTs Assessment & Plan (11/27/2024 4:21 PM EDT): - T. bili elevated 6.5, AST 231 ALT 93, INR 1.2 -Maddrey discriminant score 15 as presentation - - increase in LFTs despite cessation of alcohol, will ask for GI recs - u/s no biliary obstruction or biliary ductal dilation, normal gallbladder, liver diffusely echogenic, portal vein patent -For thoroughness check viral hepatitis studies - cont trending LFTs Assessment & Plan (11/26/2024 7:52 PM EDT): - T. bili elevated 6.5, AST 231 ALT 93, INR 1.2 -Maddrey discriminant score 15 no indication for steroids at this time Plan: Alcohol cessation Repeat LFTs in the a.m. Consider gastroenterology consultation Right upper quadrant ultrasound ordered, evaluate for portal vein thrombosis currently pending Alcohol withdrawal syndrome with complication Assessment & Plan (11/28/2024 8:26 PM EDT): - Drinks approximately 10 shots of vodka daily Discussed phenobarbital but ultimately decided to keep going with valium Social work consulted IV thiamine Assessment & Plan (11/27/2024 4:21 PM EDT): - Drinks approximately 10 shots of vodka daily CIWA protocol withdrawal seems well-controlled currently will transition to low- dose oral Valium protocol but can adjust as needed -Do not feel that there is a full contraindication to phenobarbital but would use a low dosing starting with 6 mg/kg if it is needed, right now we will avoid as withdrawal well-controlled and he is not use the phenobarbital protocol before and ideally would avoid in the setting of acute hepatitis Social work consulted IV thiamine Assessment & Plan (11/26/2024 7:52 PM EDT): - Drinks approximately 10 shots of vodka daily -Has some symptoms of withdrawal at this time -Due to elevated LFTs unable to initiate phenobarbital Plan: Diazepam withdrawal protocol IV CIWA protocol Social work consulted IV thiamine Atrial fibrillation with RVR 02/01/2023 Assessment & Plan (12/03/2024 10:49 AM EDT): - Metoprolol increased to 100 mg 3 times daily with improvement in heart rate < 110 -Continue Eliquis -Echo showed EF 45%, improved from 202. Otherwise normal exam. Picture consistent with alcoholic cardiomyopathy -advised fu to consider ablation vs CV Assessment & Plan (12/02/2024 1:10 PM EDT): - Metoprolol increased to 100 mg 3 times daily with improvement in heart rate. -Continue Eliquis -Echo showed EF 45%, improved from 202. Otherwise normal exam. Picture consistent with alcoholic cardiomyopathy. Assessment & Plan (12/01/2024 1:11 PM EDT): - Metoprolol increased to 100 mg 3 times daily with some improvement in heart rate. -Continue Eliquis -Echo showed EF 45%, improved from 2022. Otherwise normal exam. Picture consistent with alcoholic cardiomyopathy. Assessment & Plan (11/30/2024 3:51 PM EDT): - Increase metoprolol to 100 mg twice daily, hold for SBP less than 100 -Continue Eliquis -Echo showed EF 45%, improved from 2022. Otherwise normal exam. Picture consistent with alcoholic cardiomyopathy. -Cardiology consult in the morning if he is still here, otherwise outpatient follow-up Assessment & Plan (11/30/2024 3:53 AM EDT): Readmit with the same dose metoprolol 75 TID, and eliquis for stroke prevention Repeat ECHO showed improved EF from 2022 Cards consult in the AM Assessment & Plan (11/28/2024 8:26 PM EDT): - Underlying history of A-fib with RVR with prior history of nonischemic cardiomyopathy and HFrEF -Has been off medication for quite some time, heavy alcohol use -Last echo performed 02/02/2023 revealed LVEF of 20-25%, global hypokinesis moderate tricuspid regurgitation -Previously on amiodarone, metoprolol and Xarelto -No significant shortness of breath at this time, does not appear to be fluid overloaded - troponin flat - echo: EF improved to 45% no severe valvular dz - Dr. Blackwell cardiology recommended increase metoprolol to tid - increase in metoprolol, may need to add digoxin, but concern withdrawal may be contributing to tachycardia Continue Eliquis 5 mg twice daily Maintain magnesium above 2, potassium above 4 - CXR no acute findings Assessment & Plan (11/27/2024 4:21 PM EDT): - Underlying history of A-fib with RVR with prior history of nonischemic cardiomyopathy and HFrEF -Has been off medication for quite some time, heavy alcohol use -Last echo performed 02/02/2023 revealed LVEF of 20-25%, global hypokinesis moderate tricuspid regurgitation -Previously on amiodarone, metoprolol and Xarelto -No significant shortness of breath at this time, does not appear to be fluid overloaded - troponin flat - echo: EF improved to 45% no severe valvular dz - Dr. Blackwell cardiology recommended increase metoprolol to tid - can use metoprolol IV push as needed (current plan to use if maintains HR > 130 and if sbp > 105 - IF bp is soft then could use digoxin and then amiodarone as recommended by Dr. Blackwell Continue Eliquis 5 mg twice daily Maintain magnesium above 2, potassium above 4 - CXR no acute findings Assessment & Plan (11/26/2024 7:52 PM EDT): - Underlying history of A-fib with RVR with prior history of nonischemic cardiomyopathy and HFrEF -Has been off medication for quite some time, heavy alcohol use -Last echo performed 02/02/2023 revealed LVEF of 2025%, global hypokinesis moderate tricuspid regurgitation -Previously on amiodarone, metoprolol and Xarelto per patient has not been off medications for approximately a year. -No significant shortness of breath at this time, does not appear to be fluid overloaded Plan: Cardiology consulted recs appreciated Initiate metoprolol 25 mg Continue Eliquis 5 mg twice daily Treat for alcohol withdrawal Maintain magnesium above 2, potassium above 4 Repeat echocardiogram ordered and pending Check CXR Assessment & Plan (02/03/2023 10:44 AM EST): Patient presented with new onset of A-fib with RVR in the 160s in the setting of daily alcohol use. Initially treated with IV metoprolol with improvement in heart rate to the 110s but became hypotensive with BP 72/34. Initiated brief norepinephrine for approximately an hour but later stabilized. Patient was given IV digoxin load Cardiology consulted, NPO tonight for YAZMIN cardioversion on 02/04 HR improved on metoprolol 25 q 8hrs, will continue Started on Xarelto before YAZMIN cardioversion , to be continued for 30 days after procedure [id number] TTE 02/02 showed Dilated cardiomyopathy with LVIDD 6.3 cm and EF 20 to 25%., Mild functional MR. And Mild pulmonary hypertension. Heart rates improved ETOH abuse 02/01/2023 Assessment & Plan (02/03/2023 10:33 AM EST): Has a long history of alcohol dependency and recently self discontinued 6 days prior to admission. His shortness of breath and overall general malaise likely contributing to his abstinence. No signs or symptoms of alcohol withdrawal at this time. Discussed continue alcohol cessation, patient highly motivated Not showing any active withdrawal symptoms Nonischemic cardiomyopathy 02/01/2023 Assessment & Plan (02/03/2023 10:34 AM EST): Suspect tachycardia versus alcohol induced dilated cardiomyopathy No evidence of chest pain. Cardiology consulted, following recommendations Encounters Date Type Department Care Team Description 11/29/2024 6:30 PM EDT - 12/03/2024 10:30 PM EDT Hospital Encounter [facility] [address] [address] Nelson Jiménez MD Ewall, Katharine E, MD Russo, Margaret A, MD Altman, Evan K, DO, MPH Discharge Disposition: Left Against Medical Advice 11/29/2024 Procedure Pass [facility], Ct Scan - [address] [address] 11/26/2024 3:24 PM EDT - 11/29/2024 1:00 AM EDT Hospital Encounter [facility] [address] [address] Tl Winslow MD Brewer, Allison V, MD Grachev, Maksim, DO Kielbasa, [place] A, MD Discharge Disposition: Home or Self Care 11/26/2024 Procedure Pass [facility] [address] [place] [address] 10/21/2024 Refill [facility] [address], [address] [place] [address] José Macias MD Medication Refill from Last 3 Months Family History Medical History Relation Comments Alcohol abuse Father Atrial fibrillation Maternal Uncle Relation Status Comments Father Maternal Uncle Social History Tobacco Use Types Packs/Day Years Used Date Smoking Tobacco: Some Days Cigarettes Tobacco Cessation:Ready to Q uit: Not Asked; Counseling Given: Not Answered Comments:Pt reports smoking about 5 cig/day Alcohol [...] Orientation Straight 11/22/2019 1: 08 PM EDT Last Filed Vital Signs Vital Sign Reading Time Taken Comments Blood Pressure 124/78 12/03/2024 8:11 PM EDT Pulse 105 12/03/2024 8:11 PM EDT Temperature 36.7 C (98.1 F) 12/03/2024 8:11 PM EDT Respiratory Rate 20 12/03/2024 8:11 PM EDT Oxygen Saturation 98% 12/03/2024 8:11 PM EDT Inhaled Oxygen Concentration - - Weight 124.9 kg (275 lb 5.7 oz) 12/03/2024 6:12 AM EDT Height 172.7 cm (5' 8 ) 11/29/2024 3:38 PM EDT Body Mass Index 41.87 11/29/2024 3:38 PM EDT Plan of Treatment Health Maintenance Due Date Last Done Comments LIPID PANEL 1989 DEPRESSION SCREENING 2001 SMOKING Hx and SMOKELESS TOBACCO SCREENING 2002 HEPATITIS A VACCINES (1 of 2 - Risk 2-dose series) 2008 PNEUMOCOCCAL VACCINES (0-49 years) (1 of 2 - PCV) 2008 Adult Td,Tdap Booster 08/01/2011 07/31/2001 INFLUENZA VACCINE (#1) 2024 COVID-19 VACCINE (2 - season) 2024 05/16/2020 TSH LEVEL 11/29/2025 11/29/2024, 10/0 07/2024, 02/01/2023 ALT LEVEL (ALANINE AMINOTRANSFERASE) 12/03/2025 12/03/2024, 12/02/2024, 12/01/2024, Additional history exists CREATININE LEVEL 12/03/2025 12/03/2024, 11/2024, 11/29/2024, Additional history exists SCREENING FOR DIABETES 12/04/2027 12/03/2024 HEPATITIS C SCREENING Completed 11/28/2024 , 04/29/2020, 12/25/2019 HIV ONE-TIME SCREENING (18-65 YEARS) Completed 11/30/2024 HIB VACCINES Aged Out No longer eligi ble based on patient's age to complete this topic MENINGOCOCCAL VACCINES (ACWY) Aged Out No longer eligible based on patient's age to complete this topic MENINGOCOCCAL VACCINES (B) Aged Out N o longer eligible based on patient's age to complete this topic Medical Devices Not on file Procedures Procedure Name Priority Date/Time Associated Diagnosis Comments LFTS (HEPATIC PANEL) Routine 12/03/2024 5:59 AM EDT BASIC METABOLIC PANEL Routine 12/03/2024 5:59 AM EDT ECG 12-LEAD Routine 12/03/2024 3:22 AM EDT AMMONIA Timed 12/02/2024 8:45 AM EDT LAB ADD ON Routine 12/02/2024 8:00 AM EDT LFTS (HEPATIC PANEL) Routine 12/02/2024 5:57 AM EDT ECG 12-LEAD STAT 12/01/2024 8:40 AM EDT LFTS (HEPATIC PANEL) Routine 12/01/2024 6:12 AM EDT SYPHILIS ANTIBODY SCREEN ASSAY Routine 12/01/2024 6:12 AM EDT SYPHILIS ANTIBODY SCREEN ASSAY Routine 11/30/2024 6:07 AM EDT MAGNESIUM Routine 11/30/2024 6:07 AM EDT COMPREHENSIVE METABOLIC PANEL Routine 11/30/2024 6:07 AM EDT CBC AND DIFFERENTIAL Routine 11/30/2024 6:07 AM EDT SEDIMENTATION RATE (ESR) STAT 11/30/2024 6:07 AM EDT VITAMIN B12 STAT 11/30/2024 6:07 AM EDT HIV-1/2 ANTIGEN/ANTIBODY STAT 11/30/2024 6:07 AM EDT AMMONIA STAT 11/29/2024 11:[address] HEAD WITHOUT CONTRAST Routine 11/29/2024 10:19 PM EDT PT-INR STAT 11/29/2024 9:52 PM EDT TROPONIN STAT 11/29/2024 5:21 PM EDT LFTS (HEPATIC PANEL) Routine 11/29/2024 4:23 PM EDT FREE T4 STAT 11/29/2024 4:23 PM EDT ETHANOL, BLOOD STAT 11/29/2024 4:23 PM EDT NT-PROBNP STAT 11/29/2024 4:23 PM EDT TROPONIN STAT 11/29/2024 4:23 PM EDT MAGNESIUM STAT 11/29/2024 4:23 PM EDT TSH WITH REFLEX STAT 11/29/2024 4:23 PM EDT BASIC METABOLIC PANEL STAT 11/29/2024 4:23 PM EDT CBC AND DIFFERENTIAL STAT 11/29/2024 4:23 PM EDT ECG 12-LEAD STAT 11/29/2024 3:47 PM EDT PT-INR Routine 11/28/2024 5:48 AM EDT MAGNESIUM Routine 11/28/2024 5:48 AM EDT COMPREHENSIVE METABOLIC PANEL Routine 11/28/2024 5:48 AM EDT CBC AND DIFFERENTIAL Routine 11/28/2024 5:48 AM EDT HEPATITIS B SURFACE ANTIBODY Routine 11/28/2024 5:48 AM EDT HEPATITIS B SURFACE ANTIGEN Routine 11/28/2024 5:48 AM EDT HEPATITIS B CORE ANTIBODY, IGM Routine 11/28/2024 5:48 AM EDT HEPATITIS A ANTIBODY, IGM Routine 11/28/2024 5:48 AM EDT HEPATITIS C VIRAL LOAD (PCR) Routine 11/28/2024 5:48 AM EDT COVID PANDEMIC RESPIRATORY VIRAL ORDER (PRO) STAT 11/27/2024 2:28 PM EDT US ABDOMEN LIMITED RIGHT UPPER QUADRANT Routine 11/27/2024 9:19 AM EDT TTE COMPREHENSIVE W/ LVO CONTRAST Routine 11/27/2024 9:08 AM EDT Heart failure, unspecified HF chronicity, unspecified heart failure type Acute on chronic systolic heart failure PT-INR Routine 11/27/2024 5:32 AM EDT COMPREHENSIVE METABOLIC PANEL Routine 11/27/2024 5:32 AM EDT CBC AND DIFFERENTIAL Routine 11/27/2024 5:32 AM EDT PHOSPHORUS Routine 11/27/2024 5:32 AM EDT MAGNESIUM Routine 11/27/2024 5:32 AM EDT URINE SEDIMENT STAT 11/26/2024 11:25 PM EDT TOXICOLOGY SCREEN, URINE STAT 11/26/2024 11:25 PM EDT URINALYSIS W/REFLEX URINE CULTURE STAT 11/26/2024 11:25 PM EDT XR CHEST PA AND LATERAL 2 VIEWS Routine 11/26/2024 8:09 PM EDT COVID PANDEMIC RESPIRATORY VIRAL ORDER (PRO) STAT 11/26/2024 7:27 PM EDT FREE T4 STAT 11/26/2024 4:58 PM EDT TSH WITH REFLEX STAT 11/26/2024 4:58 PM EDT MAGNESIUM STAT 11/26/2024 4:58 PM EDT BASIC METABOLIC PANEL STAT 11/26/2024 4:58 PM EDT NT-PROBNP STAT 11/26/2024 4:58 PM EDT PT-INR STAT 11/26/2024 4:58 PM EDT LIPASE STAT 11/26/2024 4:58 PM EDT LFTS (HEPATIC PANEL) STAT 11/26/2024 4:58 PM EDT TROPONIN STAT 11/26/2024 4:58 PM EDT LAB ADD ON STAT 11/26/2024 4:00 PM EDT TROPONIN STAT 11/26/2024 3:37 PM EDT CBC AND DIFFERENTIAL STAT 11/26/2024 3:37 PM EDT ECG 12-LEAD STAT 11/26/2024 3:20 PM EDT from Last 3 Months Results * (ABNORMAL) LFTs (hepatic panel) (12/03/2024 5:59 AM EDT) Only the most recent of5 resultswithin the time period is included. ALKALINE PHOSPHATASE 141(H) 39 - 117 U/L [facility] TOTAL BILIRUBIN 8.7(H) 0.0 - 1.2 mg/dL [facility] DIRECT BILIRUBIN 6.3(H) 0.0 - 0.2 mg/dL [facility] Bilirubin (Indirect) 2.4(H) 0 - 1.5 mg/dL [facility] AST 208(H) 0 - 37 U/L [facility] ALT 125(H) 0 - 40 U/L [facility] TOTAL PROTEIN 6.7 6.5 - 8.0 g/dL [facility] ALBUMIN 3.8(L) 3.9 - 4.8 g/dL [facility] GLOBULIN 2.9 1 - 4.8 g/dL [facility] A/G Ratio 1.31 1.00 - 4.80 RATIO [facility] Blood 12/03/2024 5:59 AM EDT 12/03/2024 6:50 AM EDT us Rose Patrick MD LAB BLOOD ORDERABLES Final R esult [address] [address] * Basic metabolic panel (12/03/2024 5:59 AM EDT) Only the most recent of3 resultswithin the time period is included. SODIUM 140 133 - 146 mmol/L [facility] CHLORIDE 101 96 - 108 mmol/L [facility] POTASSIUM 3.6 3.3 - 5.1 mmol/L [facility] CO2 24 21 - 35 mmol/L [facility] BUN 7 6 - 19 mg/dL [facility] CREATININE 0.70 0.5 - 1.5 mg/dL [facility] GLUCOSE 73 70 - 99 mg/dL [facility] CALCIUM 8.8 8.4 - 10.3 mg/dL [facility] EGFR >120 >59 mL/min/1.7 3m2 [facility] Comment:Estimated glomerular filtration rate calculated using the CKD-EPI refit equation. ANION GAP 19 10 - 20 mmol/L [facility] Blood 12/03/2024 5:59 AM EDT 12/03/2024 6:50 AM EDT us Rose Patrick MD LAB BLOOD ORDERABLES Final R esult Performing Organization Address City/[facility] Co de Phone Number [address] [address] * ECG 12-LEAD (12/03/2024 3:22 AM EDT) Only the most recent of4 resultswithin the time period is included. Ventricular Rate EKG/MIN 101 BPM [facility] QRS Duration 106 ms [facility] QT Interval 378 ms [facility] QTC Interval 490 ms [facility] R Wave Grabill 13 degrees [facility] T Wave Grabill -57 degrees [facility] 12/03/2024 3:22 AM EDT 12/03/2024 9:22 AM EDT Narrative [facility] - 12/03/2024 9:22 AM EDT Atrial fibrillation with rapid ventricular response ST & T wave abnormality, consider anterior ischemia Abnormal ECG When compared with ECG of 01-Dec-2024 08:40, No significant change was found Confirmed by Reggie Winter ([id number]) on 12/03/2024 9:22:18 AM us Alen Johnson DO, MPH ECG ORDERABLES Final Resu lt [facility] * Ammonia (12/02/2024 8:45 AM EDT) Only the most recent of2 resultswithin the time period is included. AMMONIA 41 28 - 80 umol/L [facility] Blood 12/02/2024 8:45 AM EDT 12/02/2024 9:12 AM EDT Rose Patrick MD LAB BLOOD ORDERABLES Final R esult Performing Organization Address City/[facility] Co de Phone Number [address] [address] * Lab Add On: ammonia (12/02/2024 8:00 AM EDT) Only the most recent of2 resultswithin the time period is included. TEST REQUESTED AMMONIA [facility] Comments (Chemistry) Add on order being processed. Floor or provider will be notified if testing cannot be performed [facility] 12/02/2024 8:00 AM EDT 12/02/2024 8:08 AM EDT Rose Patrick MD LAB BLOOD ORDERABLES Final R esult Performing Organization Address [facility] Co de Phone Number [address] [address] * Syphilis antibody screen (12/01/2024 6:12 AM EDT) Only the most recent of2 resultswithin the time period is included. RPR NON-REACTIV E NON-REACTI VE [facility] Blood 12/01/2024 6:12 AM EDT 12/01/2024 6:45 AM EDT Marisel Mejia MD LAB BLOOD ORDERABLES Final Result Performing Organization Address City/[facility] Co de Phone Number [address] [address] * (ABNORMAL) Comprehensive metabolic panel (11/30/2024 6:07 AM EDT) Only the most recent of3 resultswithin the time period is included. SODIUM 140 133 - 146 mmol/L [facility] POTASSIUM 3.9 3.3 - 5.1 mmol/L [facility] Comment:Specimen slightly he molyzed, result may be falsely elevated. CHLORIDE 102 96 - 108 mmol/L [facility] CO2 22 21 - 35 mmol/L [facility] BUN 12 6 - 19 mg/dL [facility] CREATININE 0.80 0.5 - 1.5 mg/dL [facility] GLUCOSE 85 70 - 99 mg/dL [facility] ALBUMIN 3.9 3.9 - 4.8 g/dL [facility] TOTAL PROTEIN 6.4(L) 6.5 - 8.0 g/dL [facility] CALCIUM 8.9 8.4 - 10.3 mg/dL [facility] ALKALINE PHOSPHATASE 151(H) 39 - 117 U/L [facility] TOTAL BILIRUBIN 8.7(H) 0.0 - 1.2 mg/dL [facility] AST 210(H) 0 - 37 U/L [facility] ALT 94(H) 0 - 40 U/L [facility] GLOBULIN 2.5 1 - 4.8 g/dL [facility] EGFR 118 >59 mL/min/1.7 3m2 [facility] Comment:Estimated glomerular filtration rate calculated using the CKD-EPI refit equation. ANION GAP 20 10 - 20 mmol/L [facility] Blood 11/30/2024 6:07 AM EDT 11/30/2024 6:31 AM EDT us Marisel Mejia MD LAB BLOOD ORDERABLES Final Result [facility] [address] [place] [address] * HIV-1/2 antigen/antibody (11/30/2024 6:07 AM EDT) HIV-1/2 Antigen/Antibo dy NON-REACTI VE NON-REACTI VE [facility] Blood 11/30/2024 6:07 AM EDT 11/30/2024 6:31 AM EDT us Marisel Mejia MD LAB BLOOD ORDERABLES Final Result [address] [address] * (ABNORMAL) Sedimentation rate (ESR) (11/30/2024 6:07 AM EDT) ESR 17(H) 0 - 15 mm/h [facility] Blood 11/30/2024 6:07 AM EDT 11/30/2024 6:31 AM EDT us Marisel Mejia MD LAB BLOOD ORDERABLES Final Result Performing Organization Address [facility] Co de Phone Number [address] [address] * (ABNORMAL) CBC and differential (11/30/2024 6:07 AM EDT) Only the most recent of5 resultswithin the time period is included. WBC 6.63 4.00 - 11.00 K/uL [facility] RBC 3.27(L) 4.50 - 5.90 M/uL [facility] HGB 13.1(L) 13.5 - 17.5 g/dL [facility] HCT 37.5(L) 41.0 - 53.0 % [facility] PLT 137(L) 150 - 450 K/uL [facility] MCV 114.7(H) 80.0 - 100.0 fL [facility] MCH 40.1(H) 27.0 - 31.0 pg [facility] MCHC 34.9 32.0 - 36.0 g/dL [facility] RDW 16.0(H) 11.5 - 14.5 % [facility] MPV 11.1 8.4 - 12.0 fL [facility] NRBC 0.00 0.00 /100 WBCs [facility] ABSOLUTE NRBC 0.00 0.00 K/uL [facility] DIFF METHOD Auto [facility] NEUTS 67.6 48.0 - 76.0 % [facility] LYMPHS 21.1 18.0 - 41.0 % [facility] MONOS 9.4 4.0 - 11.0 % [facility] EOS 0.9 0.0 - 5.0 % [facility] BASOS 0.5 0.0 - 1.5 % [facility] Granulocytes, immature (%) 0.5 0.0 - 0.9 % [facility] ABSOLUTE NEUTS 4.49 1.92 - 7.60 K/uL [facility] ABSOLUTE LYMPHS 1.40 0.72 - 4.10 K/uL [facility] ABSOLUTE MONOS 0.62 0.16 - 1.10 K/uL [facility] ABSOLUTE EOS 0.06 0.00 - 0.50 K/uL [facility] ABSOLUTE BASOS 0.03 0.00 - 0.15 K/uL [facility] Granulocytes, immature 0.03 0.00 - 0.09 K/uL [facility] Blood 11/30/2024 6:07 AM EDT 11/30/2024 6:31 AM EDT Marisel Mejia MD LAB BLOOD ORDERABLES Final Result [address] [address] * Magnesium (11/30/2024 6:07 AM EDT) Only the most recent of5 resultswithin the time period is included. MAGNESIUM 2.0 1.6 - 2.6 mg/dL [facility] Blood 11/30/2024 6:07 AM EDT 11/30/2024 6:31 AM EDT Marisel Mejia MD LAB BLOOD ORDERABLES Final Result [address] [address] * (ABNORMAL) Vitamin B12 (11/30/2024 6:07 AM EDT) VITAMIN B12 1,332(H) 232 - 1,245 pg/mL [facility] Blood 11/30/2024 6:07 AM EDT 11/30/2024 6:31 AM EDT us Marisel Mejia MD LAB BLOOD ORDERABLES Final Result [facility] [address] [place] [address] * CT HEAD WITHOUT CONTRAST (11/29/2024 10:19 PM EDT) Anatomical Region Laterality Modality Head Computed Tomogra phy 11/30/2024 1:00 AM EDT Impressions 11/30/2024 1:17 AM EDT No acute intracranial findings. ATTESTATION: I, Dr. Emeka Zaidi as teaching physician, have reviewed the images for this case and if necessary edited the report originally created by Farheen Chambers. Narrative 11/30/2024 1:[address] HEAD WITHOUT CONTRAST Referring clinician's provided indication for this examination in Epic: * Mental status change, unknown cause TECHNIQUE: CT of the head was performed without intravenous contrast using tailored dose modulation techniques. Images were reconstructed in the axial, coronal, and sagittal planes. COMPARISON: None FINDINGS: Brain Parenchyma: No midline shift, mass effect, parenchymal hemorrhage, or evidence of acute territorial infarct. Ventricular System and Extra-Axial Spaces: No extra-axial fluid collections. Basal cisterns are patent. No hydrocephalus. Osseous and Extracranial Structures: No calvarial fracture or significant soft tissue hematoma. Mild mucosal thickening in the left maxillary sinus. No orbital abnormality. Procedure Note Emeka Zaidi MD - 11/30/2024 CT HEAD WITHOUT CONTRAST Referring clinician's provided indication for this examination in [facility]: *Mental status change, unknown cause TECHNIQUE: CT of the head was performed without intravenous contrast usingtailored dose modulation techniques. Images were reconstructed in theaxial, coronal, and sagittal planes. COMPARISON: None FINDINGS: Brain Parenchyma: No midline shift, mass effect, parenchymal hemorrhage,or evidence of acute territorial infarct. Ventricular System and Extra-Axial Spaces: No extra-axial fluidcollections. Basal cisterns are patent. No hydrocephalus. Osseous and Extracranial Structures: No calvarial fracture or significantsoft tissue hematoma. Mild mucosal thickening in the left maxillary sinus.No orbital abnormality. IMPRESSION: No acute intracranial findings. ATTESTATION: I, Dr. Emeka Zaidi as teaching physician, have reviewed theimages for this case and if necessary edited the report originally createdby Farheen Chambers. Nelson Jiménez MD IMG CT HEAD/NECK Final Result * (ABNORMAL) PT-INR (11/29/2024 9:52 PM EDT) Only the most recent of4 resultswithin the time period is included. PT 16.0(H) 10.2 - 12.9 sec [facility] INR 1.3(H) 0.9 - 1.1 [facility] Comment:Therapeutic range fo r oral Vitamin K antagonists: 2.0-3.5 Blood 11/29/2024 9:52 PM EDT 11/29/2024 9:55 PM EDT Nelson Jiménez MD LAB BLOOD ORDERAB LES Final Result [address] [address] * (ABNORMAL) Troponin (11/29/2024 5:21 PM EDT) Only the most recent of4 resultswithin the time period is included. Troponin-T, HS Gen5 16(H) 0 - 14 ng/L [facility] Blood 11/29/2024 5:21 PM EDT 11/29/2024 5:25 PM EDT Tl Winslow MD LAB BLOOD ORDERABLES Final Result Performing Organization Address City/[facility]/ZIP Co de Phone Number [address] [address] * Ethanol, blood (11/29/2024 4:23 PM EDT) ETHANOL <10 <10 mg/dL [facility] Blood 11/29/2024 4:23 PM EDT 11/29/2024 4:31 PM EDT Tl Winslow MD LAB BLOOD ORDERABLES Final Result Performing Organization Address [facility] de Phone Number [address] [address] * (ABNORMAL) TSH with reflex (11/29/2024 4:23 PM EDT) Only the most recent of2 resultswithin the time period is included. TSH 83.20(H) 0.27 - 4.20 uIU/mL [facility] Blood 11/29/2024 4:23 PM EDT 11/29/2024 4:31 PM EDT Tl Winslow MD LAB BLOOD ORDERABLES Final Result Performing Organization Address [facility] Co de Phone Number [address] [address] * (ABNORMAL) Free T4 (11/29/2024 4:23 PM EDT) Only the most recent of2 resultswithin the time period is included. FREE T4 0.4(L) 0.9 - 1.7 ng/dL [facility] 11/29/2024 4:23 PM EDT 11/29/2024 4:31 PM EDT Tl Winslow MD LAB BLOOD ORDERABLES Final Result Performing Organization Address City/[facility]/ZIP Co de Phone Number [address] [address] * (ABNORMAL) NT-proBNP (11/29/2024 4:23 PM EDT) Only the most recent of2 resultswithin the time period is included. NT-PROBNP 1,225(H) 0 - 125 pg/mL [facility] Blood 11/29/2024 4:23 PM EDT 11/29/2024 4:31 PM EDT us Tl Winslow MD LAB BLOOD ORDERABLES Final Result [address] [address] * Hepatitis A antibody, IgM (11/28/2024 5:48 AM EDT) Hepatitis A Antibody, IgM NON-REACTI VE NON-REACTI VE [facility] Blood 11/28/2024 5:48 AM EDT 11/28/2024 6:14 AM EDT us Erendira Jordan MD LAB BLOOD ORDERABLES Final Result Performing Organization Address City/[facility]/ZIP Co de Phone Number [address] [address] * Hepatitis B core antibody, IgM (11/28/2024 5:48 AM EDT) HEP B CORE IGM AB Negative Negative [facility] Comment:IgM anti-HBc not det ected. Does not exclude the possibility of exposure to or infection with HBV. Blood 11/28/2024 5:48 AM EDT 11/28/2024 6:15 AM EDT us Erendira Jordan MD LAB BLOOD ORDERABLES Final Result [address] [address] * Hepatitis C viral load (PCR) (11/28/2024 5:48 AM EDT) Pathologist [facility] HCV RNA DETECT/QNT Undetected Undetected IU/mL [facility] Comment: (NOTE) Result in log IU/mL is Undetected. ADDITIONAL INFORMATION The quantification range of this assay is 15 to 100,000,000 IU/mL (1.18 log to 8.00 log IU/mL). Testing was performed using the madelin HCV test ([employer] Blood (Blood) 11/28/2024 5:4 8 AM EDT 11/28/2024 6:14 AM EDT us Erendira Jordan MD NON CULTURE MICROBIOLOGY Fi nal Result Performing Organization Address City/[facility]/ZIP Co de Phone Number [facility] [address] [place] [address] * Hepatitis B surface antibody (11/28/2024 5:48 AM EDT) Pathologist [facility] HBV SURFACE ANTIBODY Reactive [facility] Comment: Unvaccinated: Non Reactive Vaccinated: Reactive Blood 11/28/2024 5:48 AM EDT 11/28/2024 6:14 AM EDT us Erendira Jordan MD LAB BLOOD ORDERABLES Final Result [address] [address] * Hepatitis B surface antigen (11/28/2024 5:48 AM EDT) Pathologist [facility] HBV SURFACE ANTIGEN NON-REACTI VE NON-REACTI VE [facility] Blood 11/28/2024 5:48 AM EDT 11/28/2024 6:14 AM EDT us Erendira Jordan MD LAB BLOOD ORDERABLES Final Result Performing Organization Address [facility] Co de Phone Number [address] [address] * COVID Pandemic Respiratory Viral Order (PRO) (11/27/2024 2:28 PM EDT) Only the most recent of2 resultswithin the time period is included. Test Ordered Rapid COVID has been ordered [facility] SPECIMEN SOURCE/DESCRIPTION NASAL [facility] SARS-CoV 2 (COVID-19) PCR Negative Negative [facility] Comment: SARS-CoV-2 not detected Negative results do not preclude SARS-CoV-2 infection and should not be used as the sole basis for patient management decisions. Negative results must be combined with clinical observations, patient history, and epidemiological information. This test has been authorized by the FDA under an Emergency Use Authorization (EUA) for use by authorized laboratories. Other (Nasopharyngeal swab) 11/27/2024 2:28 PM EDT 11/27/2024 3:08 PM EDT us Erendira Jordan MD BODY FLUIDS AND STOOLS ORDE RABLES Final Result Performing Organization Address [facility] de Phone Number [address] [address] * US ABDOMEN LIMITED RIGHT UPPER QUADRANT (11/27/2024 9:19 AM EDT) Anatomical Region Laterality Modality Abdomen Ultrasound 11/27/2024 9:21 AM EDT Impressions 11/27/2024 9:23 AM EDT 1. Normal gallbladder. 2. No biliary ductal dilatation. 3. The liver is diffusely echogenic. This is a nonspecific finding indicating diffuse hepatocellular disease and limiting the sensitivity of this exam. In the correct clinical scenario, this commonly represents fatty liver. Within the limitations of this study, there is no sonographic evidence for focal hepatic lesion. 4. The portal vein is patent Narrative 11/27/2024 9:23 AM EDT US ABDOMEN LIMITED RIGHT UPPER QUADRANT Referring clinician's provided indication for this examination in [facility]: Jaundice; Pain; evaluate for portal vein thrombosis TECHNIQUE: US Abdominal limited right upper quadrant. COMPARISON: Prior ultrasound 05/02/2020 FINDINGS: Limited by body habitus/bowel gas. Liver: Echogenic liver. Main Portal Vein: Patent with normal direction of flow. Gallbladder: No gallstones or gallbladder wall thickening. Parsons's Sign: Negative. Biliary: No intrahepatic or extrahepatic biliary ductal dilatation. The common bile duct measures 5 mm. Right Kidney: No stones or hydronephrosis. The right kidney measures 10.9 cm. Procedure Note Sergo Garcia MD - 11/27/2024 US ABDOMEN LIMITED RIGHT UPPER QUADRANT Referring clinician's provided indication for this examination in [facility]:Jaundice; Pain; evaluate for portal vein thrombosis TECHNIQUE: US Abdominal limited right upper quadrant. COMPARISON: Prior ultrasound 05/02/2020 FINDINGS: Limited by body habitus/bowel gas. Liver: Echogenic liver. Main Portal Vein: Patent with normal direction of flow. Gallbladder: No gallstones or gallbladder wall thickening. Parsons's Sign: Negative. Biliary: No intrahepatic or extrahepatic biliary ductal dilatation. The common bile duct measures 5 mm. Right Kidney: No stones or hydronephrosis. The right kidney measures 10.9cm. IMPRESSION: 1. Normal gallbladder. 2. No biliary ductal dilatation. 3. The liver is diffusely echogenic. This is a nonspecific findingindicating diffuse hepatocellular disease and limiting the sensitivity ofthis exam. In the correct clinical scenario, this commonly representsfatty liver. Within the limitations of this study, there is nosonographic evidence for focal hepatic lesion. 4. The portal vein is patent us Allanamado Boudreaux DO IMG US ABDOMEN Final Result * TTE COMPREHENSIVE W/ LVO CONTRAST (11/27/2024 9:08 AM EDT) Body Surface Area 2.35 m2 Height 173 cm Weight 126 kg Systolic BP 146 mmHg Diastolic BP 921 mmHg Left Atrium Dimension Anterior-Posterior 46 15 - 40 mm Aortic Valve Mean Gradient 4 mmHg Aortic Valve Time Velocity Integral 188.0 mm Aortic Valve Peak Velocity 1.3 m/s Aortic Valve Peak Gradient 7 mmHg Aortic Valve Peak Gradient 7 mmHg Aortic Sinus Diameter 32 <40 mm Ascending Aorta Diameter 32 <36 mm Interventricular Septum Thickness 12 6 - 11 mm Left Ventricle Internal Diameter End Diastole 50 42 - 58 mm Left Ventricle Internal Diameter End Systole 36 <40 mm Left Ventricular Outflow Tract Diameter 22.0 mm LVOT VTI REST 106.0 mm Left Ventricular Outflow Tract Velocity 0.8 m/s Left Ventricular Outflow Tract Gradient at Rest 2 mmHg Left Ventricular Posterior Wall Thickness 11 6 - 11 mm Left Ventricle Ea Lateral Wave Speed 14.6 cm/s Left Ventricle Ea Septal Wave Speed 12.0 cm/s Ejection Fraction 48 50 - 75 Percent Left Ventricle E Wave Speed 98.1 cm/s Right Ventricle Basal Diameter 31 25 - 41 mm Raw LV EF% 48 % MV E/E' Tissue Velocity Lateral 6.72 Relative Wall Thickness 0.44 0.22 - 0.42 Left Ventricle indexed to BSA 93.7 g/m2 MV E/e' septal 8.18 Left Ventricle E/e' Average 7.4 Aortic Valve Prosthetic Mean Gradient 4 mmHg Aortic Valve Sinus Index by BSA 14 mm/m2 Aorta Sinus Index by Height 1.85 cm/m Aorta Sinus CSA index by Height 4.65 cm2/m Ascending Aorta Index 14 mm/m2 Asc Aorta CSA Index by Height 4.65 cm2/m MGB CV AV DIMENSIONLESS INDEX (PEAK) - STRESS ECHO DOBUT - REST 0.62 Ascending Aorta Index 14 mm Aortic Sinus Index 14 mm Ascending Aorta Diameter 14 mm Aortic Valve Sinus Index 1 14 20 - 32 mm AO ASC DIAM BSA INDEX 13.62 Echo E/Ea 8.18 Anatomical Region Laterality Modality Heart Ultrasound Narrative 11/27/2024 2:36 PM EDT Images from the original result were not included. -rhythm is atrial fibrillation - LV is normal in size with mildly reduced ejection fraction - EF is estimated at 45% - There is mild LV concentric hypertrophy present - Diastolic function is indeterminate - Normal RV systolic function - Trace mitral valve regurgitation present - Trace tricuspid valve regurgitation - RVSP cannot be estimated due to insufficient TR Doppler - No pericardial effusion present-IVC is normal Study limited due to multiple poor acoustic windows Left Ventricle The left ventricle is normal in size. There is concentric hypertrophy. The LV ejection fraction is 45% (visually estimated). LV diastolic function parameters are indeterminate in total. The E wave velocity is 98.1 cm/s. The average E/e' ratio is 7.4. Right Ventricle The right ventricle is normal in size. There is normal right ventricular systolic function. Left Atrium The left atrium is mildly dilated. Right Atrium The right atrium is normal in size. The IVC is normal in size with normal inspiratory collapse. Mitral Valve The mitral valve appears normal. There is no mitral stenosis. There is trace mitral regurgitation. Tricuspid Valve The tricuspid valve appears normal. There is no tricuspid stenosis. There is trace tricuspid regurgitation. RV systolic pressure could not be estimated due to insufficient TR Doppler envelope. Aortic Valve The aortic valve is tricuspid. There is no aortic stenosis. There is no aortic regurgitation. The visualized portions of the thoracic aorta appear normal in size. Pulmonic Valve The pulmonic valve appears normal. There is no pulmonic stenosis. There is no pulmonic regurgitation. General Findings The image quality was fair (3). Technique(s) used in the evaluation: Color flow Doppler and Spectral Doppler. An ultrasound enhancing agent was administered IV, per ASE guidelines. The predominant rhythm during the study was atrial fibrillation. Comparison Findings Compared to prior TTE on 02/02/2023, EF of 45% compared to echo from January, IAS/IVS The interatrial septum appears normal. Allan Boudreaux DO CV ECHO ORDERABLES Final Resul t * Phosphorus (11/27/2024 5:32 AM EDT) Pathologist [facility] PHOSPHORUS 2.8 2.7 - 4.5 mg/dL [facility] Blood 11/27/2024 5:32 AM EDT 11/27/2024 5:51 AM EDT Alaln Boudreaux DO LAB BLOOD ORDERABLES Final Res ult [address] [id number] * (ABNORMAL) Urinalysis w/reflex Urine Culture (11/26/2024 11:25 PM EDT) COLOR [place]TON(A) Yellow [facility] CLARITY Clear [facility] GLUCOSE Trace(A) Negative [facility] BILI 3+(A) Negative [facility] KETONES Trace(A) Negative [facility] SPECIFIC GRAVITY 1.015 1.005 - 1.030 [facility] BLOOD Negative Negative [facility] PH 7.0 5.0 - 8.0 [facility] Protein-UA 1+(A) Negative [facility] NITRITE Positive(A) Negative [facility] Leukocyte esterase, ur Negative Negative [facility] Urine (Urine) 11/26/2024 11: 25 PM EDT 11/27/2024 12:36 PM EDT Tl Winslow MD URINE ORDERABLES Final Res ult Performing Organization Address [facility] Co de Phone Number [address] [address] * (ABNORMAL) Urine sediment (11/26/2024 11:25 PM EDT) WBC NONE SEEN NONE SEEN /hpf [facility] RBC NONE SEEN NONE SEEN /hpf [facility] URINE EPITHELIAL 0-4(A) NONE SEEN [facility] MUCUS 3+(A) NONE SEEN /hpf [facility] BACTERIA Trace(A) NONE SEEN /hpf [facility] CAST 3-5 [facility] Comment:HYALINE CAST 11/26/2024 11:2 5 PM EDT 11/27/2024 12:36 PM EDT us Tl Winslow MD URINE ORDERABLES Final Res ult Performing Organization Address [facility] Co de Phone Number [address] [address] * (ABNORMAL) Toxicology screen, urine (11/26/2024 11:25 PM EDT) URINE CANNABINOIDS Positive(A) NONE DETECTED [facility] Comment:Cutoff: 50 ng/mL URINE COCAINE METAB NONE DETECTED NONE DETECTED [facility] Comment:Cutoff: 300 ng/mL URINE AMPHETAMINES NONE DETECTED NONE DETECTED [facility] Comment:Cutoff: 1000 ng/mL URINE METHADONE NONE DETECTED NONE DETECTED [facility] Comment:Cutoff: 300 ng/mL URINE OPIATES NONE DETECTED NONE DETECTED [facility] Comment:Cutoff: 300 ng/mL URINE PHENCYCLIDINE NONE DETECTED NONE DETECTED [facility] Comment:Cutoff: 25 ng/mL URINE OXYCODONE NONE DETECTED NONE DETECTED [facility] Comment:Cutoff: 100 ng/ml URINE BARBITURATES NONE DETECTED NONE DETECTED [facility] Comment:Cutoff: 300 ng/mL URINE BENZODIAZEPINE NONE DETECTED NONE DETECTED [facility] Comment:Cutoff: 300 ng/mL URINE BUPRENORPHINE NONE DETECTED NONE DETECTED [facility] Comment:Cutoff: 5 ng/mL Fentanyl, urine NONE DETECTED NONE DETECTED [facility] Comment: Cutoff: 5 ng/mL INTERPRETATION FOR TOXICOLOGY PANEL: These results are unconfirmed and should be used for Medical Treatment purposes only. Urine (Urine) 11/26/2024 11: 25 PM EDT 11/27/2024 12:56 AM EDT Allan Boudreaux DO URINE ORDERABLES Final Result [address] [address] * XR CHEST PA AND LATERAL 2 VIEWS (11/26/2024 8:09 PM EDT) Anatomical Region Laterality Modality Chest Computed Radiogr aphy 11/27/2024 8:07 AM EDT Impressions 11/27/2024 8:08 AM EDT Normal chest. Narrative 11/27/2024 8:08 AM EDT XR CHEST PA AND LATERAL 2 VIEWS Referring clinician's provided indication for this examination in Epic: Cough; Pneumonia COMPARISON: XR CHEST PA AND LATERAL 2 VIEWS FINDINGS: Devices/Tubes/Lines: None. Lungs: The lungs are clear. No focal consolidation or pulmonary edema. Pleura: No pleural effusion or pneumothorax. Heart/Mediastinum: The heart and mediastinum are normal. Bones/Soft Tissues: No significant skeletal abnormality. Procedure Note Alfredo Shanks MD - 11/27/2024 XR CHEST PA AND LATERAL 2 VIEWS Referring clinician's provided indication for this examination in Epic:Cough; Pneumonia COMPARISON: XR CHEST PA AND LATERAL 2 VIEWS FINDINGS: Devices/Tubes/Lines: None. Lungs: The lungs are clear. No focal consolidation or pulmonary edema. Pleura: No pleural effusion or pneumothorax. Heart/Mediastinum: The heart and mediastinum are normal. Bones/Soft Tissues: No significant skeletal abnormality. IMPRESSION: Normal chest. us Allan Kanika DO IMG XR CHEST Final Result * (ABNORMAL) Lipase (11/26/2024 4:58 PM EDT) LIPASE 108(H) 16 - 63 U/L [facility] Blood 11/26/2024 4:58 PM EDT 11/26/2024 5:00 PM EDT us Tl Winslow MD LAB BLOOD ORDERABLES Final Result Performing Organization Address City/State/[facility] Co de Phone Number [address] [phone] from Last [address] [place] [address] [place] [address] [place] [address] [place] [address] [place] [address] [place] [address] PPO [facility] Advance Directives For more information, please contact: [phone] (9AM - 5PM [facility], Tuesday-Tuesday) Documents on File Type Date Recorded Patient Clinical Medical Assistant Expl anation Healthcare Proxy 12/05/2024 12:57 PM Healthcare Proxy 12/03/2024 9:04 AM healt hcare proxy * Full Code (Latest Code Status on File) Date Activated Date Inactivated Comments 11/30/2024 3:11 AM Question Answer Comments Code Status Confirmed With: Patient Code Status Communicated To: Inpatient Attending * Full Code Date Activated Date Inactivated Comments 11/26/2024 10:20 PM 11/30/2024 3:11 AM Question Answer Comments Code Status Confirmed With: Patient Code Status Communicated To: Inpatient Attending * Full Code Date Activated Date Inactivated Comments 02/01/2023 10:48 PM 11/26/2024 10:20 PM Question Answer Comments Code Status Confirmed With: Patient Code Status Communicated To: Inpatient Attending Healthcare Agents on File Name Relationship Healthcare Agent Relationshi p Communication Steph Salomon Life Partner .Primary Health Care Agent (Proxy form on file) Hermelinda Hubbard Sibling Alternate Healt hcare Agent (Proxy form on file) Care Teams Client Relationship Consultant Relationship Specialty Start Date End Date Soraya Joseph PA [address] [place] [address] PCP - General 11/22/19 Additional Source Comments The information contained in this document represents components of the legal health record. It is not the complete legal health record.[facility]
--- OUTSIDE RECORDS SUMMARY | 2024-12-10 19:27 | XMS_ITS | Encounter Summary ---
Author Organization [facility] Address [address] [facility] [address] [place] [address] Phone Care Team Providers Care Household Appliances Service Technician Name Role Phone Soraya Joseph Primary Care Provider [phone] Encounter Details Date Type Department Care Team (Latest Contact Info) Description 12/25/2019 Transcribe Orders [facility] [address] [address] Montse Lynch PA-C [address], [address] [place] [address] [email or web address] Alcoholic hepatitis, unspecified whether ascites present (Primary Dx) Social History Tobacco Use Types Packs/Day Years [...] documented as of this encounter Results * (ABNORMAL) PT-INR (12/25/2019 2:15 PM EST) PT 14.2(H) 10.2 - 12.9 sec [facility] INR 1.3(H) 0.9 - 1.1 [facility] Comment:Therapeutic range fo r oral Vitamin K antagonists: 2.0-3.5 Blood 12/25/2019 2:15 PM EST 12/25/2019 2:24 PM EST us Montse Lynch PA-C LAB BLOOD ORDERABLES Final Resu lt [address] [address] * (ABNORMAL) Liver fibrosis test (12/25/2019 2:15 PM EST) Fibrosis score 0.64 [facility] Interpretation (Fibrosis) SEE NOTE [facility] Comment: (NOTE) advanced fibrosis Fibro Test Score (f) Metavir Score f>=0 and f<=0.21 : F0 (no fibrosis) f>0.21 and f<=0.27 : F0-F1 (no fibrosis) f>0.27 and f<=0.31 : F1 (minimal fibrosis) f>0.31 and f<=0.48 : F1-F2 (minimal fibrosis) f>0.48 and f<=0.58 : F2 (moderate fibrosis) f>0.58 and f<=0.72 : F3 (advanced fibrosis) f>0.72 and f<=0.74 : F3-F4 (advanced fibrosis) f>0.74 and f<=1.00 : F4 (severe fibrosis) HCV Fibrosis Grade F3 Q [facility] NECROINFLAMM SCORE 0.35 Q [facility] NECROINFLAMM GRADE A1 Q [facility] NECROINFLAMM INTERP SEE NOTE [facility] Comment: (NOTE) minimal activity ActiTest Score (a) Metavir Score a>=0 and a<=0.17 : A0 (no activity) a>0.17 and a<=0.29 : A0-A1 (no activity) a>0.29 and a<=0.36 : A1 (minimal activity) a>0.36 and a<=0.52 : A1-A2 (minimal activity) a>0.52 and a<=0.60 : A2 (significant activity) a>0.60 and a<=0.62 : A2-A3 (significant activity) a>0.62 and a<=1.00 : A3 (severe activity) A2 Macroglobulin 204 106 - 279 mg/dL [facility] Haptoglobin 181 43 - 212 mg/dL [facility] Apolipoprotein A1 106 94 - 176 mg/dL [facility] TOTAL BILIRUBIN 2.1(H) 0.2 - 1.2 mg/dL [facility] GGT 260(H) 3 - 90 U/L [facility] ALT 44 9 - 46 U/L [facility] Specimen/Product ID [id number] [facility] Comments (Chemistry) SEE NOTE [facility] Comment: (NOTE) The reliability of results is dependent on compliance with the preanalytical and analytical conditions recommended by [employer]. The tests have to be deferred for: acute hemolysis, acute hepatitis, acute inflammation, extra hepatic cholestasis. The advice of a specialist should be sought for interpretation in chronic hemolysis and Gilbert's syndrome. The test interpretation is not validated in liver transplant patients. Isolated extreme values of one of the components should lead to caution in interpreting the results. In case of discordance between a biopsy result and a test, it is recommended to seek the advice of a specialist. The causes of these discordances could be due to a flaw of the test or to a flaw in the biopsy: i.e. a liver biopsy has a 33% variability rate for one fibrosis stage. FibroTest is interpretable for chronic hepatitis B and C, alcoholic and non alcoholic steatosis. ActiTest is interpretable for chronic hepatitis B and C. The performance characteristics have been determined by [employer]. It has not been cleared or approved by the U.S. Food and Drug Administration. Performance characteristics refer to the analytical performance of the test. [employer], the associated logo, [employer]QR and all associated [employer] newton are the registered trademarks of [employer]. All third republican newton - (R) and (TM) - are the property of their respective owners. (C) [id number] [employer]EVES[employer]. All rights reserved. Blood 12/25/2019 2:15 PM EST 12/25/2019 2:24 PM EST us Montse Lynch PA-C LAB BLOOD ORDERABLES Final Resu lt [facility] [address] [place] [address] * (ABNORMAL) C-Reactive Protein (12/25/2019 2:15 PM EST) C REACTIVE PROTEIN 8.2(H) 0.0 - 4.0 mg/L [facility] Blood 12/25/2019 2:15 PM EST 12/25/2019 2:24 PM EST us Montse Lynch PA-C LAB BLOOD ORDERABLES Final Resu lt Performing Organization Address City/[facility]/ZIP Co de Phone Number [address] [address] * (ABNORMAL) Comprehensive metabolic panel (12/25/2019 2:15 PM EST) SODIUM 141 133 - 146 mmol/L [facility] POTASSIUM 3.6 3.3 - 5.1 mmol/L [facility] CHLORIDE 103 96 - 108 mmol/L [facility] CO2 22 21 - 35 mmol/L [facility] BUN 9 6 - 19 mg/dL [facility] CREATININE 0.80 0.5 - 1.5 mg/dL [facility] GLUCOSE 116(H) 70 - 99 mg/dL [facility] ALBUMIN 4.3 3.9 - 4.8 g/dL [facility] TOTAL PROTEIN 7.6 6.5 - 8.0 g/dL [facility] CALCIUM 9.9 8.4 - 10.3 mg/dL [facility] ALKALINE PHOSPHATASE 94 39 - 117 U/L [facility] TOTAL BILIRUBIN 2.0(H) 0.0 - 1.2 mg/dL [facility] AST 61(H) 0 - 37 U/L [facility] ALT 52(H) 0 - 40 U/L [facility] GLOBULIN 3.3 1 - 4.8 g/dL [facility] EGFR 120 >59 mL/min/1.7 3m2 [facility] Comment:Estimated glomerular filtration rate calculated using the CKD-EPI equation. ANION GAP 20 10 - 20 mmol/L [facility] Blood 12/25/2019 2:15 PM EST 12/25/2019 2:24 PM EST us Montse Lynch PA-C LAB BLOOD ORDERABLES Final Resu lt [address] [id number] * (ABNORMAL) CBC (12/25/2019 2:15 PM EST) WBC 13.84(H) 4.00 - 11.00 K/uL [facility] Comment:Note Reference Range updates to all CBC and Differential results. RBC 4.63 4.23 - 5.82 M/uL [facility] HGB 15.1 13.4 - 17.5 g/dL [facility] Comment:Note updated Referen ce Ranges for all CBC and Differential results. HCT 45.0 37.0 - 51.0 % [facility] PLT 200 140 - 430 K/uL [facility] MCV 97.2(H) 78.0 - 97.0 fL [facility] MCH 32.6 25.0 - 33.0 pg [facility] MCHC 33.6 32.0 - 36.0 g/dL [facility] RDW 12.6 11.0 - 15.0 % [facility] MPV 11.7 8.4 - 12.8 [facility] NRBC 0.00 0 /100 WBCs [facility] ABSOLUTE NRBC 0.00 0 K/uL [facility] Blood 12/25/2019 2:15 PM EST 12/25/2019 2:24 PM EST us Montse Lynch PA-C LAB BLOOD ORDERABLES Final Resu lt [address] [address] * AFP (non-maternal specimens) (12/25/2019 2:15 PM EST) AFP (NON-MATERNAL) 3.6 <7.9 ng/mL [facility] Blood 12/25/2019 2:15 PM EST 12/25/2019 2:24 PM EST Montse Lynch PA-C LAB BLOOD ORDERABLES Final Resu lt [address] [address] documented in this encounter Visit Diagnoses Diagnosis Alcoholic hepatitis, unspecified whether ascites present- Primary documented in this encounter Additional Health Concerns Infection Onset Date Last Indicated Resolved Time CoV-Risk Comment:Per note documentation 11/26/2024 11/27/2024 4:24 PM EDT documented as of this encounter Care Teams Household Appliances Service Technician Relationship Specialty Start Date End Date Soraya Joseph PA [address] [place] [address] PCP - General 11/22/19 documented as of this encounter Additional Source Comments The information contained in this document represents components of the legal health record. It is not the complete legal health record.[facility]
--- OUTSIDE RECORDS SUMMARY | 2024-12-10 19:28 | XMS_ITS | Encounter Summary ---
Author Organization [facility] Address [address] [facility] [address] [place] [address] Phone Care Team Providers Care Ironworker Wire Fence Erector Name Role Phone Soraya Joseph Primary Care Provider [phone] Encounter Details Date Type Department Care Team ([facility] st Contact Info) Description 02/01/2023 Procedure Pass [facility] [address] [place] [address] Social History Tobacco Use Types Packs/Day Years [...] Date of Assessment Author No Risk Indicated 02/01/2023 10:56 PM Oralia Fox RN * Foster Suicide Severity Rating Scale (Screener/Recent Self-Report) Question Answer Date of Assessment Author 1. Wish to be (Past 1 Month) No 02/01/2023 10:56 PM William Fox RN 2. Non-Specific Active Suici thomas Thoughts (Past 1 Month) No 02/01/2023 10:56 PM Brandon Fox RN 6. Suicidal Behavior (Lifetime) No 3 10:56 PM Oralia Fox RN documented as of this encounter Plan of Treatment Not on file documented as of this encounter Visit Diagnoses Not on filedocumented in this encounter Additional Health Concerns Infection Onset Date Last Indicated Resolved Time CoV-Risk Comment:Per note documentation 11/26/2024 11/27/2024 5 4:24 PM EDT documented as of this encounter Care Teams Ironworker Wire Fence Erector Relationship Specialty Start Date End Date Soraya Joseph PA [address] [place] [id number] PCP - General 11/22/19 documented as of this encounter Additional Source Comments The information contained in this document represents components of the legal health record. It is not the complete legal health record.[facility]
--- OUTSIDE RECORDS SUMMARY | 2024-12-10 19:28 | XMS_ITS | Encounter Summary ---
Author Organization [facility] Address [address] [facility] [address] [place] [address] Phone Care Team Providers Care Bull Rider Name Role Phone Soraya Joseph Primary Care Provider [phone] Encounter Details Date Type Department Care Team ([facility] st Contact Info) Description 11/29/2024 Procedure Pass [facility] [address] [place] [address] Social History Tobacco Use Types Packs/Day Years [...] 3:59 PM EDT Dina More RN * [place] Suicide Severity Rating Scale (Screener/Recent Self-Report) Question [...] Diagnoses Not on filedocumented in this encounter Care Teams Bull Rider Relationship Specialty Start Date End Date Soraya Joseph PA [address] [place] [id number] PCP - General 11/22/19 documented as of this encounter Additional Source Comments The information contained in this document represents components of the legal health record. It is not the complete legal health record.[facility]
== END 2024-12-10 16:50 | disposition home or self-care (01) ==
LOC: HO.HCC 15:14
PROVIDERS: Visit Provider Internal Medicine
DX: F10.10 Alcohol abuse, uncomplicated (principal)
CPT/HCPCS: 99203

== ENCOUNTER 2024-12-24 14:49 | Outpatient (AMB) | payer OTHER, SELFPAY ==
[2024-12-24 14:57] VITALS: PULSE 105; O2SAT 98; BMI 41.8
--- NOTE | 2024-12-24 14:57 | MHC.OFFVIS ---
Vital Signs 12/24/24 14:57 Height 5 ft 8 in Weight 275 lb BMI 41.8 Pulse 105 H Pulse Source Pulse Oximeter Pulse Oximetry (%) 98 Oxygen Delivery Method Room Air Intake Visit Reasons: MAT Allergies No Known Allergies Allergy (Verified 12/24/24 14:57) HPI HPI MAT: Details: History of Present Illness The patient is a 34-year-old male presenting for routine evaluation of alcohol use disorder management. He currently adheres to a regimen of naltrexone 50 mg daily. Overall, he reported no recent changes or complaints regarding his health and feels well. Vital signs have remained stable. Additionally, he takes multivitamins and communicates regularly with his primary care provider to manage medication refills, including metoprolol. There are no reports of acute incidents or worsening concerning his alcohol use disorder, and he remains compliant with his treatment plan without experiencing medication side effects. Review of Systems - General: Reports feeling well. - Cardiovascular: Denies new or worsening symptoms. - Gastrointestinal: Denies any complaints. - Neurological: Denies any new symptoms. Physical Exam Results Plan Patient was informed and verbally consented to the use of an ambient scribe for clinic note documentation during this visit. 1. Alcohol use, unspecified, uncomplicated F10.90 Continuation of naltrexone 50 mg daily is recommended, as it aids in reducing alcohol cravings and consumption. The treatment appears effective, with no adverse effects reported. The patient is compliant with the regimen. Follow-up care with his primary physician is ongoing for other health matters. A one-month supply with two refills was provided, with a follow-up planned in three months. Discussion Notes During our discussion, the patient's current treatment regimen with naltrexone was reviewed. I explained the benefits of continued medication compliance in reducing alcohol consumption and preventing relapse. The patient consented to continue the treatment, having been informed of its purposes and absence of side effects. We also discussed follow-up plans with his primary care provider to ensure comprehensive management of his medication needs. I provided him with a one-month naltrexone supply with two refills and instructed him to return for further evaluation in three months. Medical Decision Making In this appointment, I evaluated the continued management of the patient's alcohol use disorder. The consistent use of naltrexone has proven effective in reducing alcohol cravings without reported side effects, which supports ongoing treatment. Upon reviewing the stable nature of his condition and treatment adherence, it was determined that no immediate changes to the current management strategy were necessary. The continuity of medication with monitoring and regular primary care follow-ups serves to maintain stable health parameters and allow for ongoing assessment of the treatment efficacy. Patient Instructions - Continue taking naltrexone 50 mg daily as prescribed. - Take your multivitamins regularly. - Remain in contact with your primary care provider for medication refills. - Return for follow-up evaluation in three months. - Call the clinic if you experience any new or concerning symptoms. [facility] Medical History (Updated 12/15/24 @ 00:01 by Kp Dyer) Atrial fibrillation Surgical History No pertinent past surgical history Social History Household Members: Significant Other Housing: Apartment Do you presently have visiting nurse or other home services: No Patient Tobacco Use Status: Current everyday Tobacco user Tobacco use type: Cigarette Cigarettes Per Day: 4 Years Smoked: 20 e-Cigarette/Vaping Use: Never Used Second Hand Smoke Exposure: No service: No Physical Exam Vital Signs: Last Vital Signs Pulse 105 H 12/24/24 14:57 Pulse Ox 98 12/24/24 14:57 Oxygen Delivery Method Room Air 12/24/24 14:57 BMI result Body Mass Index 41.8 Assessment & Plan Assessment & Plan (1) Alcohol abuse: Comment: He has been started on Naltrexone,MVI and folic acid Code(s): F10.10 - Alcohol abuse, uncomplicated Category: Medical Plan as above Medications: Changed From naltrexone 50 mg PO DAILY 30 tabs 0RF To naltrexone 50 mg PO DAILY 30 tabs 2RF 30 days Coding Level of Care Code Est Pt Level 3 (92844) Diagnoses Alcohol abuse F10.10
== END 2024-12-24 15:46 | disposition home or self-care (01) ==
LOC: HO.HCC 14:49
PROVIDERS: Visit Provider Internal Medicine
DX: F10.10 Alcohol abuse, uncomplicated (principal)
CPT/HCPCS: 99213